=== PATIENT | male | born 1950 | race Caucasian/White ===

== ENCOUNTER 2018-06-28 11:45 | Inpatient (IN) | payer OTHER ==
[~2018-06-28] VITALS: Ht 177.8 cm; Wt 81.2 kg
[2018-06-28] MEDS ORDERED: CLONIDINE HCL 0.2 MG TAB PO ONE (12:15)
[2018-06-28 12:48] LABS: BASOPHILS # (AUTO) 0.1 (0.0-0.1); BASOPHILS % 0.8 % (0.0-1.0); EOSINOPHILS # (AUTO) 0.3 (0.0-0.4); HEMATOCRIT 41.7 % (38.2-49.6); HEMOGLOBIN 14.1 g/dL (14.0-18.0); LYMPHOCYTES # (AUTO) 1.7 (1.0-3.2); LYMPHOCYTES % 13.3 % (18.0-39.1); MEAN CORPUSCULAR HGB CONC 33.8 g/dL (31-35); MEAN CORPUSCULAR VOLUME 91.6 fL (81-99); MONOCYTES % 7.7 % (4.4-11.3); NEUTROPHILS # (AUTO) 9.8 (2.1-6.9); PLATELET COUNT 347 x10e3/uL (140-360); RED BLOOD COUNT 4.55 x10e6/uL (4.3-5.7); RED CELL DISTRIBUTION WIDTH 13.1 % (11.7-14.4)
[2018-06-28 12:52] LABS: INR 0.9
[2018-06-28 12:53] LABS: PARTIAL THROMBOPLASTIN TIME 26.3 seconds (23.8-35.5)
[2018-06-28 13:01] LABS: ALANINE AMINOTRANSFERASE 21 IU/L (0-55); ALBUMIN 3.4 g/dL (3.5-5.0); ALBUMIN/GLOBULIN RATIO 0.8 (0.8-2.0); ALKALINE PHOSPHATASE 66 IU/L (40-150); ANION GAP 13.1 mmol/L (8-16); BLOOD UREA NITROGEN 17 mg/dL (7-26); BUN/CREATININE RATIO 22 (6-25); CALCIUM 9.5 mg/dL (8.4-10.2); CARBON DIOXIDE 22 mmol/L (22-29); CHLORIDE 107 mmol/L (98-107); CREATINE KINASE 209 IU/L (30-200); CREATININE, SERUM 0.79 mg/dL (0.72-1.25); EST GLOMERULAR FILTRATION RATE > 60 ML/MIN (60-); GLUCOSE 104 mg/dL (74-118); MAGNESIUM 2.1 MG/DL (1.3-2.1); POTASSIUM 4.1 mmol/L (3.5-5.1); SODIUM 138 mmol/L (136-145)
[2018-06-28] MEDS ORDERED: ONDANSETRON HCL INJ 2 MG/ML VIAL IV STA (13:23)
[2018-06-28] MEDS ORDERED: MORPHINE SULFATE 5 MG/ML VIAL IV ONE (13:30)
[2018-06-28] MEDS ORDERED: PIPER-TAZ 3.375 GM 50 ML IV ONE (13:30)
[2018-06-28] MEDS ORDERED: VANCOMYCIN 1GM/NS 250 ML 250 ML IV ONE (13:30)
[2018-06-28] MEDS ORDERED: MORPHINE SULFATE INJ 4 MG/ML INJ IV NR (13:45)
[2018-06-28] MEDS: SODIUM CHLORIDE 0.9% 1000ML 1,000 ML IV SCH (14:18)
--- NOTE | 2018-06-28 15:21 | Diagnostic Imaging Report ---
PROCEDURE: X-RAY CHEST, TWO VIEWS COMPARISON: None. INDICATIONS: INFECTED RIGHT GREAT TOE FINDINGS: LUNGS: Chronic appearing interstitial changes of the lungs. PLEURA: No effusions or pneumothorax. HEART & MEDIASTINUM: The heart is within normal size-limits. BONES & SOFT TISSUES: Degenerative changes of the spine with wedge deformity of one of the lower thoracic spine vertebral bodies. CONCLUSION: Chronic appearing changes in the lungs.. Rogelio Whitt D.O. Dictated by: Rogelio Whitt D.O. on 06/28/2018 at 15:32 Electronically approved by: Rogelio Whitt D.O. on 06/28/2018 at 15:32
--- NOTE | 2018-06-28 15:41 | Diagnostic Imaging Report ---
PROCEDURE:X-RAY RIGHT FOOT, COMPLETE COMPARISON:None. INDICATIONS:INFECTED RIGHT GREAT TOE FINDINGS: There are no fractures, dislocations, lytic or blastic lesions. No bony erosions are obvious signs of osteomyelitis. The bones are well-mineralized. There is soft tissue swelling. CONCLUSION: No obvious osteomyelitis. Rogelio Whitt D.O. Dictated by: Rogelio Whitt D.O. on 06/28/2018 at 15:52 Electronically approved by: Rogelio Whitt D.O. on 06/28/2018 at 15:52
[2018-06-28 15:45] LABS: BILIRUBIN,URINE NEGATIVE (NEGATIVE); CLARITY,URINE CLEAR (CLEAR); COLOR,URINE YELLOW (YELLOW); KETONES,URINE NEGATIVE (NEGATIVE); LEUKOCYTE ESTERASE ,URINE NEGATIVE (NEGATIVE); NITRITE,URINE NEGATIVE (NEGATIVE); PROTEIN,URINE DIPSTICK NEGATIVE (NEGATIVE); URINE UROBILINOGEN 0.2 mg/dL (0.2 - 1)
[2018-06-28 16:01] LABS: BACTERIA,URINE FEW /HPF; EPITHELIAL CELLS,URINE FEW /LPF; RBC,URINE 0-5 /HPF (0-5); WBC,URINE (MAN) 0-5 /HPF (0-5)
[2018-06-28] MEDS ORDERED: SODIUM CHLORIDE 0.9% 1000ML 1,000 ML IV SCH (16:14)
--- OUTSIDE RECORDS SUMMARY | 2018-06-28 16:27 | XMS REPORT ---
Author Author [facility] Address Unknown Phone Unavailable Care Team Providers Care Medical Records Receptionist Name Role Phone Estefany NIETO Unavailable Unavailable Problems This patient has no known problems. Allergies, Adverse Reactions, Alerts This patient has no known allergies or adverse reactions. Medications This patient has no known medications. Results Test Description Test Time Test Comments Text Results Atomic Results Result Comments FOOT RIGHT COMPLETE 2018-06-28 15:52:00 [facility] [address] [place] [address] Patient Name: ROBERT ALFONSO JR MR #: [id number] : 1950 Age/Sex: 68/M Req #: [id number] Adm Physician: Ordered by: AARON BE NP Report #: [id number] Location: ER Room/Bed: Procedure: [id number] DX/FOOT RIGHT COMPLETE Exam Date: 06/28/18 Exam Time: 1250 REPORT STATUS: Signed PROCEDURE: X-RAY RIGHT FOOT, COMPLETE COMPAR KAMALA: None. INDICATIONS: INFECTED RIGHT GREAT TOE FINDINGS: There are no fractures, dislocations, lytic or blastic lesions. No bony erosions are obvious signs of osteomyelitis. The bones are well-mineralized. There is soft tissue swelling. CONCLUSION: No obvious osteomyelitis. Jomar Whitt D.O. Dictated by: Jomar Whitt D.O. on 06/28/2018 at 15:52 Electronically approved by: Jomar Whitt D.O. on 06/28/2018 at 15:52 Dictated By: JOMAR WHITT DO 1552 Transcribed By: RIGO on 06/28/18 1552 COPY TO: AARON BE NP CHEST 2 VIEWS 2018-06-28 15:32:00 [place] [address] Patient Name: ROBERT ALFONSO JR MR #: [id number] : 1950 Age/Sex: 68/M Req #: [id number] Adm Physician: Ordered by: AARON BE NP Report #: [id number] Location: ER Room/Bed: Procedure: [id number] DX/CHEST 2 VIEWS Exam Date: 06/28/18 Exam Time: 1250 REPORT STATUS: Signed PROCEDURE: X-RAY CHEST, TWO VIEWS COMPARISON: None. IN DICATIONS: INFECTED RIGHT GREAT TOE FINDINGS: LUNGS: Chronic appearing interstitial changes of the lungs. PLEURA: No effusions or pneumothorax. HEART MEDIASTINUM: The heart is within normal size- limits. BONES SOFT TISSUES: Degenerative changes of the spine with wedge deformity of one of the lower thoracic spine vertebral bodies. CONCLUSION: Chronic appearing changes in the lungs.. Jomar Whitt D.O. Dictated by: Jomar Whitt D.O. on 06/28/2018 at 15:32 Electronically approved by: Jomar Whitt D.O. on 06/28/2018 at 15:32 Dictated By: JOMAR WHITT DO 1532 Transcribed By: RIGO on 06/28/18 1532 COPY TO: AARON BE NP
[2018-06-28] MEDS: PIPER-TAZ 3.375 GM 50 ML IV SCH ×2 (17:09→23:40)
--- NOTE | 2018-06-28 19:22 | Consultation ---
DATE OF CONSULTATION: June 28, 2018 REASON FOR CONSULTATION: Gangrenous changes to the right great toe with pregangrenous changes noted to the 5th digit right foot. HISTORY OF PRESENT ILLNESS: This is a pleasant 68-year-old white male, who was seen accompanied by granddaughter, seen in the emergency room. He relates that the infection to the right great toe started 3 weeks ago with a bullae formation, popped the bullae, presented to the urgent care approximately a week ago, was given oral clindamycin and not getting better. According to the patient, the toe turned black from one day to another. He is denying any history of fever, chills, nausea or vomiting. Has not been checked by a physician more than 2 years ago. Does not know if he is a diabetic or not. PAST MEDICAL HISTORY: According to him, unremarkable and noncontributory. CURRENT MEDICATIONS: Vitamins and clindamycin. ALLERGIES: PATIENT DENIES. SOCIAL HISTORY: Smokes a pack a day for 20+ years. Drinks socially. Denies any recreational drug use. Retired. FAMILY HISTORY: Noncontributory. CURRENT MEDICATIONS: Not listed in the chart including IV vancomycin. REVIEW OF SYSTEMS CARDIAC: Denies any palpitations or arrhythmias. RESPIRATORY: Denies any shortness of breath, productive cough. GASTROINTESTINAL: Denies any diarrhea, constipation. GENITOURINARY: Denies any hematuria or problems voiding. VITALS: Afebrile. Pulse rate 79, respirations 20, blood pressure 172/99, O2 saturation 99%. LABS: Noted, has a white blood cell count of 12.9, hemoglobin 14.1, hematocrit 41.7 with platelet count of 347,000. PODIATRIC PHYSICAL EXAMINATION: Reveals the following. VASCULAR: Pedal pulses are palpable, diminished to both the DP and PT. NEUROLOGICAL: Reveals some loss of protective sensation when utilizing Willows-Cici 5.07 monofilament wire. MUSCULOSKELETAL: Reveals muscle mass to be asymmetrical. Swelling noted to right lower extremity compared to the left. Muscle strength is 3/5 to 4/5 to all muscle groups. DERMATOLOGICAL: Reveals cyanosis of 5th digit right foot. Some discoloration of digits 2 through 4 with gangrenous changes noted to the distal aspect of the right great toe. X-RAYS: Report was reviewed revealing no gas in the tissue. ASSESSMENT: Gangrene, peripheral arterial disease with cyanosis. PLAN: Will start diluted wet-to-dry Betadine dressing. Will let the foot demarcate. Dr. Marroquin will be consulted for vascular evaluation. Noninvasive arterial Doppler studies will be ordered. Will continue IV vancomycin. Patient understands amputation will need to be done, level to be determined after foot demarcation and vascular evaluation. Job#: [id number] CQ
[2018-06-28 20:00] VITALS: BP 176/97
[2018-06-28 20:25] VITALS: BP 176/97
[2018-06-28 20:40] VITALS: BP 176/97
[2018-06-28] MEDS ORDERED: VANCOMYCIN 1GM/NS 250 ML 250 ML IV SCH (21:00)
[2018-06-28] MEDS: METOPROLOL SUCCINATE 25 MG TAB XL PO SCH (21:15)
[2018-06-28] MEDS: ATORVASTATIN 20 MG TAB PO SCH (21:25)
[2018-06-28] MEDS: HYDROMORPHONE 2MG/ML 2 MG/ML ML IV PRN (22:12)
[2018-06-29] VITALS (7 sets, daily range): BP systolic 144–200; BP diastolic 70–104
[2018-06-29] MEDS: VANCOMYCIN 1GM/NS 250 ML 250 ML IV SCH ×2 (02:00→14:21)
[2018-06-29] MEDS: HYDROMORPHONE 2MG/ML 2 MG/ML ML IV PRN ×3 (04:00→18:03)
[2018-06-29] MEDS: SODIUM CHLORIDE 0.9% 1000ML 1,000 ML IV SCH (05:45)
[2018-06-29] MEDS: PIPER-TAZ 3.375 GM 50 ML IV SCH ×3 (05:45→18:10)
[2018-06-29 06:04] LABS: BASOPHILS # (AUTO) 0.1 (0.0-0.1); BASOPHILS % 0.9 % (0.0-1.0); EOSINOPHILS # (AUTO) 0.4 (0.0-0.4); HEMATOCRIT 38.8 % (38.2-49.6); HEMOGLOBIN 12.9 g/dL (14.0-18.0); LYMPHOCYTES # (AUTO) 1.7 (1.0-3.2); MEAN CORPUSCULAR HEMOGLOBIN 30.5 pg (28-32); MEAN CORPUSCULAR HGB CONC 33.2 g/dL (31-35); MEAN CORPUSCULAR VOLUME 91.7 fL (81-99); MONOCYTES % 9.2 % (4.4-11.3); NEUTROPHILS # (AUTO) 7.4 (2.1-6.9); NEUTROPHILS % 69.5 % (38.7-80.0); PLATELET COUNT 360 x10e3/uL (140-360); RED BLOOD COUNT 4.23 x10e6/uL (4.3-5.7); RED CELL DISTRIBUTION WIDTH 13.3 % (11.7-14.4)
[2018-06-29 06:28] LABS: ANION GAP 14.1 mmol/L (8-16); BLOOD UREA NITROGEN 14 mg/dL (7-26); BUN/CREATININE RATIO 18 (6-25); CALCIUM 9.1 mg/dL (8.4-10.2); CARBON DIOXIDE 21 mmol/L (22-29); CHLORIDE 108 mmol/L (98-107); CREATININE, SERUM 0.78 mg/dL (0.72-1.25); EST GLOMERULAR FILTRATION RATE > 60 ML/MIN (60-); GLUCOSE 96 mg/dL (74-118); POTASSIUM 4.1 mmol/L (3.5-5.1); SODIUM 139 mmol/L (136-145)
[2018-06-29 07:06] LABS: THYROID STIMULATING HORMONE 1.418 uIU/mL (0.350-4.940)
--- NOTE | 2018-06-29 07:43 | Progress Note ---
DATE: June 29, 2018 SUBJECTIVE: Patient seen at bedside, doing better. Denies any history of fever, chills, nausea, or vomiting. OBJECTIVE: VITAL SIGNS: Afebrile. Pulse rate 97, respiration 20, blood pressure 200/104, O2 saturation 97%. EXTREMITIES: Pedal pulse is diminished. Decreased cellulitis. Cyanosis noted to the fifth digit, right foot. Necrotic distal aspect of the right great toe noted with still some dorsal cellulitis and edema, right foot when compared to the left. LABS: Noted. White blood cell count dropping to 10.5, hemoglobin 12.9 with a platelet count of 360,000. ASSESSMENT: Peripheral arterial disease. Gangrene, right great toe with cyanosis, fifth digit with cellulitis to the dorsal aspect and edema, right foot. PLAN: Will continue IV Zosyn and vanco. Continue local wound care. Patient will be undergoing angiogram with possible angioplasty depending on findings. Will continue to treat conservatively for now, let the foot demarcate before any definitive procedure is performed. Job#: [id number]
--- NOTE | 2018-06-29 08:26 | Consultation ---
DATE OF CONSULTATION: June 28, 2018 CARDIOLOGY CONSULTATION REFERRING PHYSICIAN: Dr. Yosi Min REASON FOR CONSULTATION: Foot wound/gangrene. HISTORY OF PRESENT ILLNESS: Mr. Perla is a pleasant 68-year-old man with history of hypertension, smoking, who presents via the emergency department with complaints of worsening discoloration of the right forefoot, particularly the right first toe with black discoloration and erythema of the forefoot and other digits to the right lower extremity over a course of 3 weeks, during which he initially thinks he might have sustained blunt trauma to the first toe, followed by blister formation and skin breakdown, followed by erythema, swelling, and then gradually black discoloration of right first toe. [facility] where antibiotics were prescribed per his account, however, he failed to notice significant improvement, otherwise noticing worsening swelling, reason why he proceeded to the hospital. He denies any prior chest discomfort or shortness of breath. He denies any prior knowledge of cardiovascular disease. He has been initiated on IV antibiotics and he is admitted for further care. Podiatry has been consulted and evaluated patient. TWELVE-SYSTEM REVIEW: Negative except for as noted above. ALLERGIES: PER EMR. PAST MEDICAL HISTORY: Reports no past medical history, however, elevated blood pressure is concerning and present in the past, hypertension. SOCIAL HISTORY: Active smoker. No alcohol or drugs. FAMILY HISTORY: Noncontributory. PHYSICAL EXAMINATION: VITAL SIGNS: Temperature 98.2, heart rate 79, respiratory rate 21, blood pressure 172/94, O2 sat 97% at room air. GENERAL: In no acute distress, alert, active. NECK: No JVD. CHEST: Clear to auscultation. CARDIOVASCULAR: Regular rate and rhythm. Normal S1 and S2. Systolic ejection murmur. No S3, no S4. ABDOMEN: Soft. EXTREMITIES: Right foot erythema in the distal third, gangrene of mid to distal first right toe, and cyanotic changes of other toes of right lower extremity. Faint right dorsalis pedis pulse. Warm extremity. Intact skin to left foot. STUDIES: Reviewed. Sodium 138, potassium 4.1, chloride 107, bicarbonate 22, BUN 17, creatinine 0.74, glucose 104. White blood cells 12.9, hemoglobin 14.1, platelets 347,000. INR 0.9, calcium 9.5, magnesium 2.1. Total protein 7.7, albumin 3.4, total bilirubin 0.3, AST 19, ALT 21, alk phos 209. Right foot x-ray with no gross evidence of osteomyelitis. Chest x-ray with chronic interstitial lung infiltrates and wedge sign of vertebrae concerning for compression fractures. Normal cardiomediastinal silhouette. ASSESSMENT: 1. Right foot cellulitis with failure of outpatient treatment. 2. Critical limb ischemia with right first toe dry gangrene and early cyanotic changes of other toes in the setting of faint right dorsalis pedis pulse and presence of active infection. 3. Active smoker. 4. Chest x-ray changes concerning for lung disease in the setting of smoking raises question of chronic obstructive pulmonary disease. 5. Hypertension. RECOMMENDATIONS: 1. Initiate 81 mg daily aspirin, atorvastatin at moderate potency, and beta gui. 2. Echocardiogram ordered for perioperative evaluation. Anticipate patient will need some degree of amputation. 3. Bilateral lower extremity arterial Doppler ordered to further screen vascular arterial system to lower extremity. Will wait further decision on invasive evaluation depending on clinical progression and initial study results. Thank you for the opportunity to participate in the care of Mr. Perla. Will be following him closely with you. He has overall guarded foot prognosis. Job#: [id number]
[2018-06-29] MEDS: ASPIRIN 81 MG CHEW TAB PO SCH (09:12)
[2018-06-29] MEDS: METOPROLOL SUCCINATE 25 MG TAB XL PO SCH (09:12)
[2018-06-29] MEDS: NIFEDIPINE CR 30 MG TAB PO SCH (11:04)
[2018-06-29] MEDS: SENNOSIDES 8.6 MG TAB PO SCH ×2 (11:04→18:02)
[2018-06-29] MEDS: DEXTROSE 5%/0.45% SOD CHL 1,000 ML IV SCH (11:04)
--- NOTE | 2018-06-29 13:29 | Progress Note ---
DATE: June 29, 2018 CARDIOLOGY PROGRESS NOTE SUBJECTIVE: No new complaints. OBJECTIVE VITAL SIGNS: Temperature 97.1, heart rate 79, respiratory rate 18, blood pressure 183/83, O2 sat 91% on room air. GENERAL: In no acute distress. Alert. NECK: No JVD. CHEST: Clear to auscultation. CARDIOVASCULAR: Regular rate and rhythm. Normal S1 and S2. ABDOMEN: Soft, nontender. EXTREMITIES: With right toe edema improving, gangrene 1st toe, and cyanotic discoloration of 2nd to 5th toes, more pronounced on the 5th toe. Dopplers ordered and still pending. CARDIOVASCULAR MEDICATIONS: Reviewed. 1. Zosyn and vancomycin antibiotics. 2. Aspirin 81 mg daily. 3. Nifedipine 60 mg daily. 4. Metoprolol succinate 25 mg daily. 5. Nicotine 21 mg p.r.n. 6. Lovenox 40 mg subcutaneous daily. 7. Atorvastatin 20 mg nightly. STUDIES: Reviewed. White blood cells 10.5, hemoglobin 12.9, platelets 360. Sodium 139, potassium 4.1, chloride 108, bicarbonate 21, BUN 14, creatinine 0.78, glucose 91. Triglycerides 96, total cholesterol 166, LDL 114, HDL 33. Blood cultures ordered and pending. ASSESSMENT 1. Left foot cellulitis with gangrenous changes of the toes. 2. Critical limb ischemia. 3. Active smoker. 4. History of hypertension. 5. Chest x-ray changes concerning for lung disease, chronic. RECOMMENDATIONS 1. Await arterial Doppler. 2. Await echocardiogram. 3. Improving with antibiotics, continue current treatment strategy. Edema going down today. 4. Continue aspirin, statin and beta gui. Job#: [id number] EV
--- NOTE | 2018-06-29 13:30 | History and Physical ---
PRIMARY CARE PROVIDER: Dr. Santiago Judd CONSULTATIONS: Derrell Vicente and Dr. Jaron Mcclellan. CHIEF COMPLAINT: Right foot gangrene of greater toe and right foot cellulitis. HISTORY: Patient is a 68-year-old male who apparently injured his right foot with right greater toe that became bluish, but his entire right toe is with some bluish discoloration with right greater toe necrosis and tissue. The patient was seen by Dr. Derrell Vicente. The patient has significant peripheral vascular disease. Right greater toe cyanosis, gangrene and 5th digit with cellulitis to the dorsal aspect and edema of the right foot with cellulitis as well. He also has some discoloration of his other toe. The patient does have severe vascular disease. The patient is seen by Dr. Vaughan. The patient will have vascular workup and possible future angiogram. The patient is otherwise stable at this time. PAST MEDICAL HISTORY: Peripheral vascular disease. The patient is a smoker. PAST SURGICAL HISTORY: Brain aneurysm repair back in the . SOCIAL HISTORY: Patient is a smoker. He denies alcohol use. No recreational drugs. ALLERGIES: NO KNOWN ALLERGIES. HOME MEDICATIONS: None. REVIEW OF SYSTEMS: Right foot pain and infection with ischemic greater toe and other toes as well. PHYSICAL EXAMINATION VITAL SIGNS: Temperature is 97, blood pressure 189/83, pulse rate 79, respirations 18. GENERAL: The patient is not in acute distress. He is awake. HEENT: Normocephalic, atraumatic and anicteric. NECK: Supple grossly. PULMONARY: Diminished breath sounds. CARDIOVASCULAR: Regular rate and rhythm. ABDOMEN: Soft, nontender and no distention. EXTREMITIES: No gross cyanosis or edema of the left lower extremity. Right foot ischemia and right greater toe gangrene with tissue. There is right foot with cellulitis, swelling and redness. There is other toes including the 2nd, 3rd, 4th, and 5th digit cyanosis. 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 LABORATORY: Sodium is 139, potassium 4.1, chloride 108, bicarb 21, BUN is 14, creatinine 0.7, glucose is 96. WBC is 10.5, hemoglobin 12.9, hematocrit 38.8, and platelets is 360,000. IMPRESSION 1. Right foot ischemia with right greater toe necrotic tissue, gangrene and right foot cellulitis along with other toes ischemia. 2. Hypertensive urgency. PLAN: Vascular workup. IV antibiotics. Consultation with Dr. Derrell Vicente and Dr. Vaughan already done. Will place the patient on Lovenox 40 mg subcutaneous for now. MRA of the brain to make sure that there is no other risk factor for anticoagulant therapy since the patient may need anticoagulant therapy for his peripheral vascular disease. Job#: [id number] [place]
--- NOTE | 2018-06-29 15:05 | Discharge Summary ---
NO DICTATION, LENGTH 0:1 Job#: [id number] RI
[2018-06-29] MEDS ORDERED: ENOXAPARIN SOD INJ 40 MG/0.4 ML SYR SC SCH (17:00)
[2018-06-29] MEDS ORDERED: IOPAMIDOL 370 MG/ML 200 ML INFUS..BTL INJ ONE (19:41)
[2018-06-29] MEDS ORDERED: SODIUM CHLORIDE 0.9% 50ML 50 ML ONE (19:41)
[2018-06-29] MEDS: HYDROCODONE/APAP 10MG-325MG TAB PO PRN (21:30)
--- NOTE | 2018-06-29 22:00 | Diagnostic Imaging Report ---
CTA BRAIN HISTORY: History of brain aneurysm COMPARISON: None. TECHNIQUE: Intracranial CT angiogram was performed. Coronal, sagittal , and 3-D reformations were created. A noncontrast head CT was also obtained. One or more of the following dose reduction techniques were used: Automated exposure control, adjustment of the mA and/or kV according to patient size, and/or utilization of iterative reconstruction technique. 100 mL of Isovue-370 were administered. DISCUSSION: Head CT: Scalp/Skull: Right pterional craniotomy changes are present. Brain sulci: Overall mildly prominent. Ventricles: Compensatory dilatation. Extra-axial spaces: No masses or fluid collections. 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 Mild periventricular white matter hypodensities are likely chronic microvascular ischemic changes. Otherwise, no masses, hemorrhage, or large vascular territory acute infarct. Dural sinuses: No abnormal densities. Sellar/Suprasellar region: Suprasellar aneurysm clip is present; associated streak artifacts obscure some details. Skull base: Intact. Incidental findings: There is minimal mucosal thickening in the left sphenoid sinus Intracranial CTA: Carotid arteries: Aneurysm clip in the area of the anterior communicating artery; there is no gross evidence for residual aneurysm. There is minimal left carotid siphon calcification without significant stenosis The intracranial internal carotid arteries are otherwise patent and without abnormality. No abnormalities in the A1 or M1 segments. Vertebrobasilar Circulation: Vertebral arteries: Patent, no abnormalities. Basilar artery: Patent, no abnormalities. Posterior cerebral arteries: Patent, no abnormalities. Normal Variants: Pcoms: Not visualized. Vertebral arteries: Left dominant. IMPRESSION: Head CT: 1. No acute intracranial abnormalities. 2. Postsurgical changes of aneurysm clipping. 3. 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 4. Mild supratentorial chronic microvascular ischemic change. Mild generalized cerebral volume loss. Intracranial CTA: 1. Aneurysm clip in the area of the anterior communicating artery. Associated streak artifacts obscure some details. No gross evidence for residual aneurysm. 2. Minimal left carotid siphon calcification without significant stenosis. 3. No other intracranial CTA abnormalities Signed by: Dr. Tapan Kramer M.D. on 06/29/2018 9:57 PM
[2018-06-30] VITALS (15 sets, daily range): BP systolic 142–170; BP diastolic 73–96
[2018-06-30] MEDS: VANCOMYCIN 1GM/NS 250 ML 250 ML IV SCH ×2 (02:30→18:14)
[2018-06-30] MEDS: HYDROMORPHONE 2MG/ML 2 MG/ML ML IV PRN ×3 (03:52→21:10)
[2018-06-30] MEDS: DEXTROSE 5%/0.45% SOD CHL 1,000 ML IV SCH (05:30)
[2018-06-30] MEDS: PIPER-TAZ 3.375 GM 50 ML IV SCH ×5 (06:00→23:40)
[2018-06-30] MEDS: ASPIRIN 81 MG CHEW TAB PO SCH (08:41)
[2018-06-30] MEDS: NIFEDIPINE CR 30 MG TAB PO SCH (08:42)
[2018-06-30] MEDS: SENNOSIDES 8.6 MG TAB PO SCH ×2 (08:42→17:00)
[2018-06-30] MEDS: METOPROLOL SUCCINATE 25 MG TAB XL PO SCH (08:42)
[2018-06-30] MEDS: HYDROCODONE/APAP 10MG-325MG TAB PO PRN (10:09)
[2018-06-30] MEDS ORDERED: MIDAZOLAM HCL 2 MG/2 ML VIAL ONE ×2 (14:34→16:12)
[2018-06-30] MEDS ORDERED: HEPARIN SOD (PORCINE) 1000 UNIT/ML 30ML ONE (14:34)
[2018-06-30] MEDS ORDERED: NITROGLYCERIN/D5W 200 MCG/ML 250 ML ONE (14:35)
[2018-06-30] MEDS ORDERED: HEPARIN SOD/SOD CHLORIDE 2,000 ML ONE (14:35)
[2018-06-30] MEDS ORDERED: SODIUM CHLORIDE 0.9% 1000ML 1,000 ML ONE (14:35)
[2018-06-30] MEDS ORDERED: IOPAMIDOL 300MG/ML 100 ML INFUS..BTL IV ONE ×2 (14:35→15:46)
[2018-06-30] MEDS ORDERED: FENTANYL CITRATE/PF 100MCG/2 ML INJ ONE (14:35)
[2018-06-30] MEDS ORDERED: LIDOCAINE HCL 2% LOCAL INJ 5 ML SDV VIAL INJ ONE (14:37)
--- NOTE | 2018-06-30 14:51 | Progress Note ---
DATE: June 30, 2018 CARDIOLOGY PROGRESS NOTE SUBJECTIVE: Gangrenous changes to first toe and early gangrene to 5th toe. Edema is somewhat better. Discussed Doppler findings, concerned about progression of disease. Activated lab for urgent peripheral angiography and attempted revascularization due to concern for a component of acute limb ischemia or subacute limb ischemia and progressive disease. OBJECTIVE VITAL SIGNS: Temperature 97.1, heart rate 77, respiratory rate 20, blood pressure 145/83, O2 sat 95%. BMI is 26.9. GENERAL: In no acute distress. Alert. NECK: No JVD. CHEST: Clear to auscultation. CARDIOVASCULAR: Regular rate and rhythm. Normal S1 and S2. No S3 or S4. ABDOMEN: Soft. EXTREMITIES: Trace right toe edema, gangrenous changes 1st toe, 5th toe, and discoloration of the 2nd to 4th toes. Decreased dorsalis pedis and posterior tibial pulses. LABORATORY DATA: Studies reviewed. Potassium 4.1, creatinine 0.78, hemoglobin 12.9, white blood cells 10.5, platelets 260. AST 19 and ALT 21. CARDIOVASCULAR MEDICATIONS 1. Aspirin 81 mg. 2. Nifedipine 60 mg daily. 3. Nifedipine 60 mg daily. 4. Atorvastatin 40 mg nightly. 5. Metoprolol succinate 25 mg daily. 6. Nicotine patch 21 mg daily. 7. Vancomycin and Zosyn. ASSESSMENT 1. Foot gangrene, abnormal Dopplers, peripheral arterial disease. Critical limb ischemia with a component of subacute ischemia and progressive disease. 2. Hypertension. 3. Chronic x-ray changes of lung concerning for underlying chronic obstructive pulmonary disease/pulmonary pathology. RECOMMENDATIONS 1. Angiography and possible endovascular revascularization planned for today. 2. Continue current cardiovascular medications and antiplatelets. 3. Further recommendations to follow. Job#: [id number] JARED
--- NOTE | 2018-06-30 15:51 | Progress Note ---
DATE: June 30, 2018 SUBJECTIVE: Patient at bedside. OBJECTIVE EXTREMITIES: Still with cyanosis noted to the 5th digit, right foot. Gangrenous changes overlying the distal aspect of the right great toe with erythema surrounding the first metatarsophalangeal joint. Pedal pulses are diminished to both the DP and PT. Skin temperature is warm and cool to touch. ASSESSMENT: Peripheral arterial disease with gangrene, capsulitis, and cyanosis. PLAN: Patient will be taken for an angiogram and possible angioplasty per Dr. Vaughan today. Continue IV antibiotics and local wound care. Once the procedure is performed, we will let the foot demarcate before a definitive procedure will be done. We will continue Zosyn and vancomycin. Job#: [id number] MACK
[2018-06-30] MEDS ORDERED: CLOPIDOGREL BISULFATE 75 MG TAB ONE (15:54)
[2018-06-30] MEDS ORDERED: ASPIRIN 325 MG TAB ONE (15:54)
[2018-06-30] MEDS ORDERED: ALTEPLASE 50 MG/VIAL (29 MILLION IU) IV ONE (16:16)
[2018-06-30] MEDS ORDERED: ONDANSETRON HCL INJ 2 MG/ML VIAL IV PRN (17:00)
[2018-06-30] MEDS: ENOXAPARIN SOD INJ 40 MG/0.4 ML SYR SC SCH (17:00)
[2018-06-30] MEDS: MORPHINE SULFATE INJ 4 MG/ML INJ IV PRN ×2 (20:24→23:39)
[2018-06-30] MEDS: ATORVASTATIN 20 MG TAB PO SCH (21:09)
[2018-07-01] VITALS (26 sets, daily range): BP systolic 120–171; BP diastolic 57–104
[2018-07-01] MEDS: HYDROCODONE/APAP 10MG-325MG TAB PO PRN (01:35)
--- NOTE | 2018-07-01 01:55 | Consultation ---
DATE OF CONSULTATION: June 30, 2018 REASON FOR CONSULT: Ischemic right lower extremity; requested by Dr. Sada Vaughan. ACCOUNTING SYSTEMS MANAGER: Dr. Yosi Min. HISTORY: I saw and evaluated this patient on June 30, 2018. He is a very nice 68-year-old man with a history of smoking, who presented to the emergency room with discoloration and cyanosis of the right foot. The right first toe was the most prominently affected. He attributed the problems to stubbing his toe several weeks ago, but the problem seems to have been developing for longer than that. He went to a freestanding emergency room and was admitted to [facility]. An angiogram today by Dr. Vaughan reveals an occluded superficial/popliteal artery with distal reconstitution and what appears to be 3-vessel runoff. He is being maintained on Lovenox. The patient denies any history of claudication. He said that he was walking as far as he wanted to several months ago and this included trips of up to a 1 to 2 miles. He denies any history of rest pain. There is no history of previous ischemic extremities. He is a long-time smoker. No history of myocardial infarction. MEDICATIONS AT HOME: None. He only takes vitamins. SOCIAL HISTORY: Positive for smoking. No alcohol or IV drugs. He was by himself. He has a daughter that he does not speak to in [place]. PAST MEDICAL HISTORY: Probably positive for hypertension, but he does not see any physician. FAMILY HISTORY: Negative for early coronary artery disease. MEDICATIONS: See EMR. ALLERGIES: None known. REVIEW OF SYSTEMS: GENERAL: Negative for fatigue and malaise. NEUROLOGIC: Negative for focal weakness in the extremities or dysarthria. HEENT: Negative for decreased vision or decreased hearing. CARDIAC: Negative for chest pain or palpitations. PULMONARY: Negative for shortness of breath or wheezing. GI: No constipation or diarrhea. : Negative for hematuria or dysuria. ENDOCRINE: Negative for polyuria or polydipsia. VASCULAR: Positive as above. SKIN: Negative for rashes or itching. Positive for great toe discoloration on the right. HEMATOLOGIC: Negative for clotting or bleeding. INFECTIOUS: Negative for fevers or sweating. PSYCHIATRIC: Negative for depression or anxiety. PHYSICAL EXAMINATION GENERAL: A well-developed, well-nourished man, lying flat in bed in the ICU at [facility]. VITAL SIGNS: Blood pressure 140/70, pulse 80 and regular, respirations 16 and unlabored. NECK: Supple and nontender. No JVD. CARDIAC: Shows a regular rate and rhythm. There is a normal S1 and S2. There is no S3, S4, rub or murmur. LUNGS: Clear to auscultation and percussion bilaterally. ABDOMEN: Globoid, benign. Good bowel sounds. No hepatosplenomegaly. BACK: No CVA tenderness. No muscular spasms. EXTREMITIES: Right foot and great toe are cyanotic/ischemic. The right lower extremity is warm to the ankle without any ischemia. On the left, the lower extremity is warm throughout. VASCULAR: Carotids, radials, femorals are 2+/2+ bilaterally. On the left, the popliteal, dorsalis pedis and posterior tibialis are 2+/2+. On the right, the popliteal, dorsalis pedis and posterior tibial are not palpable. NEUROLOGIC: Cranial nerves II-XII intact. Sensation is intact to light touch and pinprick both upper extremities and left lower extremity. Right lower extremity has somewhat diminished sensation on the right foot, but otherwise is intact. LYMPHATIC: Negative for cervical, clavicular, femoral adenopathy. LABORATORIES AND IMAGING: Angiogram is reviewed on a phone video. The crime lab analyst is not open for review. Sodium is 139, potassium 4.1, BUN 14, creatinine 0.78, white count 10.5, hemoglobin 12.9, hematocrit 38.8, and platelet count 360,000. INR is 0.90. IMPRESSION: Right lower extremity acceptably well perfused at present. We will discuss options with Dr. Vaughan and the patient's other physicians. Thank you very much for asking me to see this nice man. Job#: [id number] KENY
[2018-07-01] MEDS: VANCOMYCIN 1GM/NS 250 ML 250 ML IV SCH ×2 (02:09→14:30)
[2018-07-01] MEDS: HYDROMORPHONE 2MG/ML 2 MG/ML ML IV PRN ×2 (02:42→20:15)
[2018-07-01] MEDS: MORPHINE SULFATE INJ 4 MG/ML INJ IV PRN ×2 (04:00→23:15)
[2018-07-01 04:54] LABS: BASOPHILS # (AUTO) 0.1 (0.0-0.1); BASOPHILS % 0.8 % (0.0-1.0); EOSINOPHILS # (AUTO) 0.3 (0.0-0.4); EOSINOPHILS % 2.5 % (0.0-6.0); HEMATOCRIT 41.7 % (38.2-49.6); HEMOGLOBIN 14.2 g/dL (14.0-18.0); LYMPHOCYTES # (AUTO) 1.3 (1.0-3.2); LYMPHOCYTES % 11.1 % (18.0-39.1); MEAN CORPUSCULAR HEMOGLOBIN 30.7 pg (28-32); MEAN CORPUSCULAR HGB CONC 34.1 g/dL (31-35); MEAN CORPUSCULAR VOLUME 90.1 fL (81-99); MONOCYTES % 7.9 % (4.4-11.3); NEUTROPHILS # (AUTO) 9.3 (2.1-6.9); NEUTROPHILS % 77.4 % (38.7-80.0); PLATELET COUNT 362 x10e3/uL (140-360); RED BLOOD COUNT 4.63 x10e6/uL (4.3-5.7); RED CELL DISTRIBUTION WIDTH 12.9 % (11.7-14.4)
[2018-07-01 05:19] LABS: ANION GAP 13.3 mmol/L (8-16); BLOOD UREA NITROGEN 12 mg/dL (7-26); BUN/CREATININE RATIO 17 (6-25); CARBON DIOXIDE 19 mmol/L (22-29); CHLORIDE 107 mmol/L (98-107); CREATININE, SERUM 0.72 mg/dL (0.72-1.25); EST GLOMERULAR FILTRATION RATE > 60 ML/MIN (60-); GLUCOSE 95 mg/dL (74-118); POTASSIUM 3.3 mmol/L (3.5-5.1); SODIUM 136 mmol/L (136-145)
[2018-07-01] MEDS: PIPER-TAZ 3.375 GM 50 ML IV SCH ×4 (06:00→23:57)
[2018-07-01] MEDS: ASPIRIN 81 MG CHEW TAB PO SCH (07:58)
[2018-07-01] MEDS: NIFEDIPINE CR 30 MG TAB PO SCH (08:00)
[2018-07-01] MEDS: NICOTINE 21 MG/EA PATCH TOP PRN (08:01)
[2018-07-01] MEDS: SENNOSIDES 8.6 MG TAB PO SCH ×2 (08:01→16:45)
[2018-07-01] MEDS: ENOXAPARIN SOD INJ 40 MG/0.4 ML SYR SC SCH (08:01)
[2018-07-01] MEDS: METOPROLOL SUCCINATE 25 MG TAB XL PO SCH (08:01)
[2018-07-01] MEDS ORDERED: HEPARIN SOD (PORCINE) 5,000 UNIT/ML VIAL IV ONE (11:00)
[2018-07-01] MEDS ORDERED: HEPARIN SOD (PORCINE) 5,000 UNIT/ML VIAL IV NR (11:15)
[2018-07-01] MEDS: HEPARIN 25,000 UNIT/D5W 250ML 250 ML IV SCH (11:23)
--- NOTE | 2018-07-01 13:26 | Progress Note ---
DATE: July 01, 2018 SUBJECTIVE: Patient seen in ICU. Denying any history of fever, chills, nausea, or vomiting. OBJECTIVE VITAL SIGNS: Afebrile, pulse rate 78, respirations 22, blood pressure 162/86, O2 saturation 98%. EXTREMITIES: There is decreased swelling and cellulitis to the right lower extremity. Fifth digit right foot is looking a little bit better. Better skin temperature. Necrosis to the left great toe is stable. Has erythema surrounding the 1st MPJ. LABS: Noted. Has a white blood cell count of 11.9, hemoglobin 14.2. ASSESSMENT: Peripheral arterial disease with a clot to the superficial femoral artery. PLAN: Patient was put on heparin. We will continue to let the foot demarcate. Continue local wound care. Continue offloading. Job#: [id number] ABHINAV
--- NOTE | 2018-07-01 14:09 | Operative Report ---
DATE OF PROCEDURE: June 28, 2018 PERIPHERAL ANGIOGRAPHY AND INTERVENTION PROCEDURE INDICATIONS: Acute versus subacute limb ischemia with gangrenous and cyanotic changes of toe; however, otherwise viable lower extremity. PROCEDURES PERFORMED 1. Left common femoral access and at the end of procedure manual pressure hemostasis. 2. Abdominal aortogram. 3. Selective lower extremity angiography, unilateral to right lower extremity. 4. Third-order catheter placement from left common femoral artery to right common femoral artery for selective angiography. 5. Additional third-order catheter placement from left common femoral artery to right popliteal artery for additional digital subtraction angiography of the right [id number]-[id number] vessels confirming adequate outflow. This was not well visualized on initial angiogram from right femoral side. 6. Primary arterial thrombectomy of the right superficial femoral artery with Pronto catheter. PROCEDURE COMPLICATIONS: None. ESTIMATED BLOOD LOSS: Less than 100 mL. PROCEDURE SUMMARY: After consent was obtained, patient was prepped and draped in a sterile fashion. The left common femoral artery was accessed with micropuncture after local lidocaine administration and a 6-Cameroonian sheath was placed. An Omni Flush catheter was advanced to the distal descending abdominal aorta and angiography revealed patent renal arteries and luminal irregularities in the infrarenal abdominal aortal and iliac vessels bilaterally. A 6-Cameroonian up and over sheath was then advanced to the right common femoral artery position and angiography selectively to the right lower extremity was performed confirming occluded right SFA in the proximal to mid segment and distal vessels now well visualized. After advancement of Seeker catheter across the area of stenosis and positioned into the distal right SFA, additional angiography with digital subtraction confirmed patent right distal SFA, right popliteal artery, and three-vessel runoff to the right foot. A wire exchange was then performed to Runthrough wire and after initial attempt to position, distal filter wire was placed with difficulty crossing over Seeker catheter. A Runthrough wire was positioned and a Pronto catheter was then used to perform various passes retrieving thrombus from the area of occlusion, although some re-establishment of small channel luminal flow residual significant thrombus burden persisted with residual over 90% area of stenosis in the proximal to mid right SFA. Patient described prior history of brain aneurysm status post neurosurgery and therefore deemed not an adequate candidate for catheter based tPA; therefore, at this point sheath was exchanged for a 7-Cameroonian short sheath to the left common femoral side and after ACT less than 170, pressure hemostasis applied. CV surgery consultation initiated for prompt revascularization via surgical approach. Patient transferred to ICU for further care. CONCLUSION: Right SFA primary thrombectomy with suboptimal results given high burden thrombus RECOMMENDATIONS: CV surgery consultation for surgical approach towards this subacute limb ischemia case. Job#: [id number] SIENA
--- NOTE | 2018-07-01 16:54 | Progress Note ---
DATE: July 01, 2018 CARDIOLOGY PROGRESS NOTE SUBJECTIVE: No new complaints. OBJECTIVE VITAL SIGNS: Temperature 98.4, heart rate 79, respiratory rate 22, blood pressure 159/87, O2 sat 98% on room air on IV heparin. GENERAL: In no acute distress. Alert. NECK: No JVD. CHEST: Clear to auscultation. CARDIOVASCULAR: Regular rate and rhythm. Normal S1 and S2. ABDOMEN: Soft. EXTREMITIES: Edema resolved. Has Doppler positive right dorsalis pedis and posterior tibial pulses, first right toe tip with gangrene and other toes with dusky appearance more pronounced to the 5th toe, overall stable in appearance. CARDIOVASCULAR MEDICATIONS: Reviewed. 1. Zosyn antibiotics. 2. IV heparin. 3. Lovenox discontinued. 4. Nicotine patch. 5. Nifedipine 60 mg daily. 6. Metoprolol succinate 25 mg daily. 7. Vancomycin. 8. Atorvastatin 40 mg at bedtime. STUDIES: Reviewed. White blood cells 11.9, hemoglobin 14.2, platelets 362. Sodium 136, potassium 3.3, chloride 107, bicarbonate 19, BUN 12, creatinine 0.72, glucose 95, calcium 9. ALT 114, HDL 33, triglycerides 96, total cholesterol 166, TSH 1.4. Blood cultures negative x72 hours. ASSESSMENT 1. Subacute limb ischemia with thrombosis proximal to mid right superficial femoral artery and distal reconstitution via collateral and profunda femoris, undergoing vascular surgery evaluation. 2. Toe gangrene, right lower extremity. 3. Chronic lung disease changes on x-ray concerning in the setting of smoking for possible chronic obstructive pulmonary disease. 4. Hypertension. RECOMMENDATIONS: Continue IV heparin and aspirin, up titrate statin therapy. Adjust antihypertensives, antibiotics and podiatry care. We will need some degree of limited amputation at a later date. Appreciate vascular surgery expertise considering options for revascularization. Patient reports history of prior neurosurgery for intracranial aneurysm and is not a candidate for catheter based lytic therapy. Job#: [id number] MARJ
[2018-07-01] MEDS: ATORVASTATIN 40 MG TAB PO SCH (20:59)
[2018-07-02] VITALS (24 sets, daily range): BP systolic 142–179; BP diastolic 83–107
[2018-07-02] MEDS: VANCOMYCIN 1GM/NS 250 ML 250 ML IV SCH ×2 (01:47→14:30)
[2018-07-02] MEDS: HYDROMORPHONE 2MG/ML 2 MG/ML ML IV PRN ×4 (02:00→18:13)
[2018-07-02] MEDS: HYDROCODONE/APAP 10MG-325MG TAB PO PRN ×3 (03:38→19:56)
[2018-07-02 04:44] LABS: BASOPHILS # (AUTO) 0.1 (0.0-0.1); BASOPHILS % 0.8 % (0.0-1.0); EOSINOPHILS # (AUTO) 0.5 (0.0-0.4); HEMATOCRIT 42.9 % (38.2-49.6); HEMOGLOBIN 14.4 g/dL (14.0-18.0); LYMPHOCYTES # (AUTO) 1.9 (1.0-3.2); MEAN CORPUSCULAR HEMOGLOBIN 30.4 pg (28-32); MEAN CORPUSCULAR HGB CONC 33.6 g/dL (31-35); MEAN CORPUSCULAR VOLUME 90.7 fL (81-99); MONOCYTES # (AUTO) 1.1 (0.2-0.8); MONOCYTES % 8.6 % (4.4-11.3); NEUTROPHILS # (AUTO) 9.1 (2.1-6.9); NEUTROPHILS % 71.2 % (38.7-80.0); PLATELET COUNT 393 x10e3/uL (140-360); RED BLOOD COUNT 4.73 x10e6/uL (4.3-5.7); RED CELL DISTRIBUTION WIDTH 12.8 % (11.7-14.4)
[2018-07-02 04:56] LABS: INR 0.99
[2018-07-02 04:57] LABS: PARTIAL THROMBOPLASTIN TIME 38.4 seconds (23.8-35.5)
[2018-07-02 05:02] LABS: ANION GAP 15.1 mmol/L (8-16); BLOOD UREA NITROGEN 12 mg/dL (7-26); BUN/CREATININE RATIO 15 (6-25); CALCIUM 9.5 mg/dL (8.4-10.2); CARBON DIOXIDE 21 mmol/L (22-29); CHLORIDE 105 mmol/L (98-107); CREATININE, SERUM 0.81 mg/dL (0.72-1.25); EST GLOMERULAR FILTRATION RATE > 60 ML/MIN (60-); GLUCOSE 116 mg/dL (74-118); POTASSIUM 3.1 mmol/L (3.5-5.1); SODIUM 138 mmol/L (136-145)
[2018-07-02] MEDS: PIPER-TAZ 3.375 GM 50 ML IV SCH ×4 (05:33→23:47)
[2018-07-02] MEDS: HEPARIN 25,000 UNIT/D5W 250ML 250 ML IV SCH (06:05)
[2018-07-02] MEDS: ASPIRIN 81 MG CHEW TAB PO SCH (07:59)
[2018-07-02] MEDS: METOPROLOL SUCCINATE 25 MG TAB XL PO SCH (08:00)
[2018-07-02] MEDS: SENNOSIDES 8.6 MG TAB PO SCH ×2 (08:00→15:53)
[2018-07-02] MEDS: NIFEDIPINE CR 30 MG TAB PO SCH (08:00)
[2018-07-02] MEDS: NICOTINE 21 MG/EA PATCH TOP PRN (08:01)
--- NOTE | 2018-07-02 10:32 | Progress Note ---
DATE: July 02, 2018 SUBJECTIVE: Patient at bedside. Doing okay. Denies any history of fever, chills, nausea, or vomiting. OBJECTIVE VITALS: Afebrile, pulse rate 77, respirations 21, blood pressure 161/83, O2 saturation 100%. EXTREMITIES: Pedal pulses are diminished to the right lower extremity. Cyanosis to the 5th digit, right foot getting better. Pedal pulses are barely to nonpalpable to both the DP and PT. LABS: Noted. White blood cell count 12.7, hemoglobin 14.4, hematocrit 42.9 with a platelet count of 393,000. ASSESSMENT: Peripheral artery disease with a thrombosis noted to the superficial femoral artery, right foot with gangrenous changes noted to the right great toe and pregangrenous cyanosis to the forefoot aspect of the right lower extremity. PLAN: Continue ptpqisq-tmt-dl-dry Betadine to the affected area. Continue offloading. Patient will be taken for surgical for possible thrombectomy or bypass surgery of fem-pop per Dr. Nixon. Will continue to follow up after the surgery. Let the foot demarcate before any definitive procedure is performed. Job#: [id number] DREA
--- NOTE | 2018-07-02 14:25 | Progress Note ---
DATE: July 02, 2018 CARDIOLOGY PROGRESS NOTE SUBJECTIVE: No new complaints. Plan for possible vascular surgical intervention later today. OBJECTIVE VITALS: Temperature 97 degrees, heart rate 77, respiratory rate 22, blood pressure 158/89, O2 sat 99%. GENERAL: In no acute distress. Alert. NECK: No JVD. CHEST: Clear to auscultation. CARDIOVASCULAR: Regular rate and rhythm. S1 and S2. No S3 or S4. ABDOMEN: Soft and nontender. EXTREMITIES: No edema. Erythema to right forefoot improving. First toe gangrene with blackish discoloration. Other toes dusky and stable in appearance. CARDIOVASCULAR MEDICATIONS: Reviewed. 1. Aspirin 81 mg daily. 2. Atorvastatin 80 mg at bedtime. 3. Vancomycin and Zosyn. 4. Nicotine patch. 5. Metoprolol succinate 50 mg daily. 6. Nifedipine 60 mg daily. STUDIES: Reviewed. Creatinine 0.8, potassium 3.1. Hemoglobin 14.4 and platelets 393,000. INR 0.9. AST 19, ALT 21. ASSESSMENT 1. Subacute limb ischemia with gangrene of 1st toe and dusky appearance of other toes, right lower extremity. 2. Suspected lung disease in the setting of smoking and abnormal chest x-ray. 3. Hypertension. 4. Dyslipidemia. RECOMMENDATIONS 1. Continue current cardiovascular medications. 2. Anticipate moderate risk for cardiovascular outcomes with vascular surgery. At this point, perioperative beta blockers are by-stand and provided to the patient. Appreciate vascular surgery expertise. 3. Foot care per podiatry's expertise. Job#: [id number] NC
[2018-07-02] MEDS: ATORVASTATIN 40 MG TAB PO SCH (21:11)
[2018-07-03] VITALS (25 sets, daily range): BP systolic 123–176; BP diastolic 79–96
[2018-07-03] MEDS: VANCOMYCIN 1GM/NS 250 ML 250 ML IV SCH ×2 (02:53→14:15)
[2018-07-03] MEDS: HYDROCODONE/APAP 10MG-325MG TAB PO PRN ×3 (03:19→17:50)
[2018-07-03] MEDS: PIPER-TAZ 3.375 GM 50 ML IV SCH ×3 (06:00→17:09)
[2018-07-03] MEDS ORDERED: HEPARIN 25,000U/0.45% NS 250ML 250 ML ONE (07:02)
[2018-07-03] MEDS: HEPARIN 25,000 UNIT/D5W 250ML 250 ML IV SCH (07:56)
[2018-07-03] MEDS: ASPIRIN 81 MG CHEW TAB PO SCH (08:31)
[2018-07-03] MEDS: METOPROLOL SUCCINATE 25 MG TAB XL PO SCH (08:32)
[2018-07-03] MEDS: NIFEDIPINE CR 30 MG TAB PO SCH (08:32)
[2018-07-03] MEDS: SENNOSIDES 8.6 MG TAB PO SCH ×2 (08:32→16:33)
[2018-07-03] MEDS: NICOTINE 21 MG/EA PATCH TOP PRN (08:33)
[2018-07-03 08:51] LABS: BASOPHILS # (AUTO) 0.1 (0.0-0.1); EOSINOPHILS # (AUTO) 0.6 (0.0-0.4); EOSINOPHILS % 5.2 % (0.0-6.0); HEMATOCRIT 38.5 % (38.2-49.6); HEMOGLOBIN 12.9 g/dL (14.0-18.0); LYMPHOCYTES # (AUTO) 1.7 (1.0-3.2); LYMPHOCYTES % 14.7 % (18.0-39.1); MEAN CORPUSCULAR HEMOGLOBIN 30.8 pg (28-32); MEAN CORPUSCULAR HGB CONC 33.5 g/dL (31-35); MEAN CORPUSCULAR VOLUME 91.9 fL (81-99); MONOCYTES # (AUTO) 1.3 (0.2-0.8); MONOCYTES % 11.5 % (4.4-11.3); NEUTROPHILS # (AUTO) 7.8 (2.1-6.9); NEUTROPHILS % 67.3 % (38.7-80.0); PLATELET COUNT 391 x10e3/uL (140-360); RED BLOOD COUNT 4.19 x10e6/uL (4.3-5.7); RED CELL DISTRIBUTION WIDTH 13.1 % (11.7-14.4)
[2018-07-03 09:02] LABS: ANION GAP 14.8 mmol/L (8-16); BLOOD UREA NITROGEN 14 mg/dL (7-26); BUN/CREATININE RATIO 20 (6-25); CALCIUM 9.2 mg/dL (8.4-10.2); CARBON DIOXIDE 22 mmol/L (22-29); CHLORIDE 107 mmol/L (98-107); EST GLOMERULAR FILTRATION RATE > 60 ML/MIN (60-); GLUCOSE 94 mg/dL (74-118); POTASSIUM 3.8 mmol/L (3.5-5.1); SODIUM 140 mmol/L (136-145)
--- NOTE | 2018-07-03 12:07 | Progress Note ---
DATE: July 03, 2018 SUBJECTIVE: Patient at bedside. Having some discomfort to the left lower extremity. Denies any history of fever, chills, nausea, or vomiting. OBJECTIVE: VITAL SIGNS: Afebrile, pulse rate 71, respirations 19, blood pressure 145/65. O2 saturation 99%. EXTREMITIES: Left lower extremity looking somewhat mottled. Decreased circulatory status to both the DP and PT with the DP being worse. Cyanosis noted to the 5th digit, right foot. Erythema surrounding the 1st MPJ with gangrenous changes noted to the left great toe. LABS: Show white blood cell count of 11.5, hemoglobin 12.9, platelet count of 391. ASSESSMENT: 1. Gangrene. 2. Peripheral arterial disease with cyanosis. PLAN: Patient will undergo surgical intervention per Dr. Nixon tomorrow, possible thrombectomy or bypass surgery. We will continue local wound care. Continue offloading. Once the procedure is performed, we will let foot demarcate before definitive procedure is done. Job#: [id number] ABHINAV
[2018-07-03] MEDS: METOPROLOL SUCCINATE 50 MG TAB XL PO SCH (16:33)
[2018-07-03] MEDS ORDERED: METOPROLOL SUCCINATE 25 MG TAB XL PO SCH (17:00)
--- NOTE | 2018-07-03 17:37 | Progress Note ---
DATE: July 03, 2018 CARDIOLOGY PROGRESS NOTE SUBJECTIVE: No new complaints. Awaiting surgery. OBJECTIVE VITAL SIGNS: Temperature 98.5, heart rate 70, blood pressure 155/92, respiratory rate 19, O2 sat 99% on nasal cannula. GENERAL: In no acute distress. Alert. NECK: No JVD. CHEST: Clear to auscultation. CARDIOVASCULAR: Regular rate and rhythm. Normal S1 and S2. No S3 or S4. No murmurs. No rubs. ABDOMEN: Soft and nontender. EXTREMITIES: No edema. Right 1st toe with black gangrene and dusky discoloration of other toes of right lower extremity. Doppler positive pulses dorsalis pedis and posterior tibialis of the right lower extremity. Overall appearance stable. Has intact sensation to 2nd to 4th right toes. CARDIOVASCULAR MEDICATIONS: Reviewed; 1. Aspirin 81 mg daily. 2. Atorvastatin 80 mg at bedtime. 3. Metoprolol succinate 50 mg daily, will be increased to 50 mg twice a day. 4. Nifedipine 60 mg daily. 5. Nicotine patch 1 mg daily. 6. Vancomycin. 7. Zosyn. 8. IV heparin. STUDIES: Reviewed. Creatinine 0.7. Hemoglobin 12.9, platelets 391. INR 0.9. Normal transaminases. ASSESSMENT 1. Peripheral arterial disease with subacute limb ischemia, thrombosis of the right superficial femoral artery, pending surgical revascularization, appreciate cardiovascular surgery input and expertise. 2. Chest x-ray findings concerning for intrinsic chronic lung disease possibly chronic obstructive pulmonary disease in the setting of smoking, pending further workup as outpatient at later date. 3. Hypertension. 4. Dyslipidemia. RECOMMENDATIONS 1. Proceed with vascular surgical intervention as per Dr. Nixon's expertise. 2. Up titrate beta gui. 3. Will need surgical intervention by podiatry after revascularization. 4. Will need further outpatient evaluation at a later date from cardiovascular standpoint. Job#: [id number] SIENA
[2018-07-03] MEDS: HYDROMORPHONE 2MG/ML 2 MG/ML ML IV PRN (19:39)
[2018-07-03] MEDS: ATORVASTATIN 40 MG TAB PO SCH (21:00)
[2018-07-04] VITALS (20 sets, daily range): BP systolic 135–178; BP diastolic 57–101
[2018-07-04] MEDS ORDERED: SODIUM CHLORIDE 0.9% 250ML 250 ML ONE
[2018-07-04] MEDS: PIPER-TAZ 3.375 GM 50 ML IV SCH ×4 (00:01→19:59)
[2018-07-04] MEDS: HYDROCODONE/APAP 10MG-325MG TAB PO PRN (00:17)
[2018-07-04] MEDS: VANCOMYCIN 1GM/NS 250 ML 250 ML IV SCH ×2 (02:45→11:56)
[2018-07-04 04:50] LABS: BASOPHILS # (AUTO) 0.1 (0.0-0.1); EOSINOPHILS # (AUTO) 0.6 (0.0-0.4); EOSINOPHILS % 5.4 % (0.0-6.0); HEMOGLOBIN 13.1 g/dL (14.0-18.0); LYMPHOCYTES # (AUTO) 2.1 (1.0-3.2); LYMPHOCYTES % 20.1 % (18.0-39.1); MEAN CORPUSCULAR HGB CONC 32.8 g/dL (31-35); MEAN CORPUSCULAR VOLUME 91.5 fL (81-99); MONOCYTES % 9.5 % (4.4-11.3); NEUTROPHILS # (AUTO) 6.6 (2.1-6.9); NEUTROPHILS % 63.7 % (38.7-80.0); PLATELET COUNT 375 x10e3/uL (140-360); RED BLOOD COUNT 4.37 x10e6/uL (4.3-5.7); RED CELL DISTRIBUTION WIDTH 12.8 % (11.7-14.4)
[2018-07-04 05:14] LABS: ANION GAP 12.8 mmol/L (8-16); BLOOD UREA NITROGEN 16 mg/dL (7-26); BUN/CREATININE RATIO 21 (6-25); CALCIUM 9.4 mg/dL (8.4-10.2); CARBON DIOXIDE 23 mmol/L (22-29); CHLORIDE 107 mmol/L (98-107); CREATININE, SERUM 0.76 mg/dL (0.72-1.25); EST GLOMERULAR FILTRATION RATE > 60 ML/MIN (60-); GLUCOSE 99 mg/dL (74-118); POTASSIUM 3.8 mmol/L (3.5-5.1); SODIUM 139 mmol/L (136-145)
[2018-07-04] MEDS: HYDROMORPHONE 2MG/ML 2 MG/ML ML IV PRN ×2 (05:58→13:14)
[2018-07-04] MEDS: METOPROLOL SUCCINATE 50 MG TAB XL PO SCH ×2 (08:17→19:52)
[2018-07-04] MEDS: ASPIRIN 81 MG CHEW TAB PO SCH (09:00)
[2018-07-04] MEDS: SENNOSIDES 8.6 MG TAB PO SCH ×2 (09:00→19:51)
[2018-07-04] MEDS: MORPHINE SULFATE INJ 4 MG/ML INJ IV PRN ×2 (09:24→22:37)
[2018-07-04] MEDS ORDERED: HEPARIN SOD/SOD CHLORIDE 1,000 ML ONE (09:32)
--- NOTE | 2018-07-04 09:44 | Progress Note ---
DATE: July 04, 2018 SUBJECTIVE: Patient ready to be taken for surgical intervention today later on for a thrombectomy and possible bypass surgery. OBJECTIVE VITAL SIGNS: Afebrile. Pulse rate 78, respirations 17, blood pressure 163/92. O2 saturation 99%. LABS: Noted. Has a white blood cell count of 10.3, hemoglobin 13.1, platelet count of 375. Discoloration with skin temperature being warm and cool to touch to the forefoot aspect, right foot. Gangrenous changes noted to the right great toe. Cyanosis noted to the 5th digit with some discoloration to all digits of the right foot. ASSESSMENT: Peripheral artery disease with gangrene with capsulitis surrounding the 1st metatarsophalangeal joint. PLAN: Patient will undergo surgical intervention today. Depending on surgery, will let the foot demarcate before any definitive procedure is done. Will continue with local wound care and IV antibiotics such as vancomycin and Zosyn. Job#: [id number] VIK
[2018-07-04] MEDS: NIFEDIPINE CR 30 MG TAB PO SCH (09:50)
--- NOTE | 2018-07-04 11:33 | Progress Note ---
DATE: July 04, 2018 CARDIOLOGY PROGRESS NOTE SUBJECTIVE: No new complaints. OBJECTIVE VITAL SIGNS: Temperature 98.3, heart rate 77, respiratory rate 16, blood pressure 176/98, O2 sat 99% on room air. GENERAL: No acute distress. Alert. NECK: No JVD. CHEST: Clear to auscultation. CARDIOVASCULAR: Regular rate and rhythm. Normal S1 and S2. ABDOMEN: Soft and nontender. EXTREMITIES: No edema. Stable gangrene of 1st toe and dusky discoloration of other right toes. CARDIOVASCULAR MEDICATIONS 1. Nifedipine 60 mg daily. 2. Metoprolol succinate 50 mg twice a day. 3. Atorvastatin 80 mg at bedtime. 4. Nicotine 21 mg p.r.n. 5. Aspirin 81 mg daily. 6. Heparin IV. STUDIES: White blood cells 10.3, hemoglobin 13, platelets 375. INR 0.9, PT 78. Creatinine 0.7, potassium 3.8, bicarbonate 23, calcium 9.4. Blood cultures no growth after 5 days. On telemetry, in sinus rhythm. ASSESSMENTS 1. Pending revascularization via surgical approach to the right superficial femoral artery in the vicinity of subacute thrombosis, on heparin intravenous as well as aspirin. 2. Continue perioperative beta-blockers. 3. Moderate risk for averse cardiovascular outcomes. 4. Hypertension, still somewhat labile. Continue antihypertensive as necessary while in-house. 5. Continue statin for dyslipidemia. 6. X-ray findings suggestive of chronic lung disease in the setting of smoking. Outpatient followup advised at a later date for further evaluation. Job#: [id number] VIK
[2018-07-04] MEDS ORDERED: HEPARIN SOD (PORCINE) 1000 UNIT/ML 30ML ONE ×2 (13:06→13:26)
[2018-07-04] MEDS ORDERED: MUPIROCIN 2% OINT 22 GM TUBE ONE ×2 (13:06→13:08)
[2018-07-04] MEDS ORDERED: PROTAMINE SULFATE 10 MG/ML 5 ML VIAL ONE (13:06)
[2018-07-04] MEDS ORDERED: THROMBIN FOR SOLN 5,000 UNIT VIAL ONE (13:06)
[2018-07-04] MEDS ORDERED: SODIUM CHLORIDE 0.9% 500ML 500 ML ONE ×3 (13:07→16:32)
[2018-07-04] MEDS ORDERED: GELATIN SPONGE 12-7MM ONE (13:07)
[2018-07-04] MEDS ORDERED: IOPAMIDOL 610MG/1ML 300 MG/ML VIAL IV ONE ×2 (13:07→15:04)
[2018-07-04] MEDS ORDERED: FENTANYL CITRATE/PF 100MCG/2 ML INJ ONE ×2 (17:53→18:11)
[2018-07-04] MEDS ORDERED: MIDAZOLAM HCL 2 MG/2 ML VIAL ONE (17:53)
[2018-07-04] MEDS ORDERED: MEPERIDINE HCL INJ 25 MG/ML VIAL ONE (18:42)
--- NOTE | 2018-07-04 18:52 | Operative Report ---
DATE OF PROCEDURE: July 04, 2018 PREOPERATIVE DIAGNOSES 1. Peripheral arterial disease. 2. Ischemic left lower extremity. 3. Hypertension. POSTOPERATIVE DIAGNOSES 1. Peripheral arterial disease. 2. Ischemic left lower extremity. 3. Hypertension. OPERATIONS PERFORMED 1. Popliteal artery thrombectomy. 2. Femoral popliteal bypass at above-knee level using prosthetic graft. 3. Intraoperative angiogram. FURNITURE PACKER: Leatha Novak (nursing staff). ANESTHESIA: General endotracheal. INDICATIONS: This is a 68-year-old man who presented with an ischemic right lower extremity. He had an ischemic great toe. Angiogram showed evidence of popliteal artery thrombus. Thrombectomy for revascularization was recommended. Prior to surgery, I described the operation to the patient, who was in the hospital by himself and did not have anybody he wanted me to call. I told him that the risks of surgery would include , bleeding, infection, heart attack, stroke, pneumonia, prolonged ICU stay, mechanical ventilation, tracheostomy, [id number] amputation, possibility of femoral popliteal bypass as documented in the consent and what I described to him, et cetera. I told him that after surgery there would be a risk of a higher amputation and that the right great toe would likely need amputation or further attention. Patient stated that he understood, had no further questions, had nobody that he wanted me to call, and wanted to proceed with surgery. FINDINGS: Popliteal artery thrombectomy did not restore adequate inflow. There was evidence of diffuse atherosclerotic disease in this patient who has a long history of smoking. A femoral popliteal bypass was performed. The femoral artery had excellent inflow, and an excellent palpable pulse was restored to the popliteal artery with strong Doppler signal restored to the posterior tibialis. PROCEDURE: The patient was taken to the operating room July 04, 2018, and placed supine upon the operating room table. General endotracheal anesthesia was smoothly induced. The anterior abdomen and both lower extremities were sterilely prepped and draped in the usual fashion using alcohol, prewash and Betadine scrub and solution. An incision was made along the medial knee and carried into the popliteal space. The popliteal artery was isolated and controlled. There was no pulse palpable. Patient was systemically heparinized. The popliteal artery was occluded proximally and distally. It was opened longitudinally. There was some blood within the popliteal artery with a faint pulsation. Thrombectomy/embolectomy was performed distally. No clot was retrieved. There was evidence of atherosclerosis. Proximally, the catheter would pass to 40 cm and could be withdrawn without difficulty but no pulsatile flow was restored. On withdrawing the catheter, it seemed as though there were atherosclerotic plaques that were the cause of the occlusion. There was a good palpable femoral pulse. Decision was made to proceed with femoral popliteal bypass. Incision was made over the right groin. Dissection was carried down to the inguinal ligament. Common femoral artery was isolated and controlled. It was of good quality and caliber. It had an excellent pulse. A tunnel was made connecting the femoral and popliteal artery incisions. It should be noted that prior to occluding the popliteal artery for the thrombectomy, the patient had been systemically heparinized using 1 mg/kg of heparin intravenously. Patient had also been on intravenous heparin preoperatively. Common femoral artery had been occluded proximally and distally. A longitudinal arteriotomy was created. There was excellent arterial inflow. End-to-side anastomosis of a 6 mm Propaten graft (the only 6 mm graft available) was anastomosed end-to-side fashion to the common femoral artery. Running 6-0 Prolene was used. Prior to completing the anastomosis, a 3.0 mm dilator passed easily proximally and distally and into the graft. The anastomosis was completed. Occluding instruments were removed. The graft filled without difficulty and had excellent flow. It was brought through the tunnel to the popliteal artery. Popliteal artery had been occluded previously proximal and distally. End-to-side anastomosis of graft to artery was performed using a running 6-0 Prolene after the graft had been cut to appropriate length. Prior to completing the distal anastomosis, a 3.0 mm dilator passed easily proximally and distally. The graft was deaired, and then the anastomosis was completed. Occluding instruments were removed. An excellent palpable pulse was restored to the popliteal artery. A strong Doppler signal was auscultated at the right posterior tibialis. Intraoperative angiogram was then performed. Catheter was introduced through the proximal prosthetic graft. The graft was occluded. Angiogram was performed. The distal anastomosis was widely patent with good runoff into the distal popliteal artery. Runoff via the posterior tibialis was also good. The catheter was withdrawn and the entry site into the graft oversewn. There was good hemostasis. No protamine was administered. Wounds were closed in layers using absorbable suture. Sterile dressings were applied. Sponge, instrument, and needle counts were correct both prior to and after wound closure. Independent search of the operative field by both the operating surgeon and nurse revealed no retained instruments or sponges. Patient tolerated the procedure well, was extubated in the operating room and taken to the recovery room in good condition. Job#: [id number] EV
[2018-07-04] MEDS ORDERED: D5.45%NS/KCL 20MEQ 1,000 ML IV ONE (19:30)
[2018-07-04] MEDS ORDERED: MORPHINE SULFATE INJ 4 MG/ML INJ IV PRN (19:30)
[2018-07-04] MEDS ORDERED: ATORVASTATIN 40 MG TAB PO SCH (21:00)
[2018-07-04] MEDS: ATORVASTATIN 40 MG TAB PO SCH (21:37)
[2018-07-04] MEDS: DOCUSATE SODIUM 100 MG CAP PO SCH (21:37)
[2018-07-04] MEDS ORDERED: HYDRALAZINE HCL 20 MG/ML VIAL IV PRN (22:45)
[2018-07-05] VITALS (26 sets, daily range): BP systolic 121–182; BP diastolic 48–103
[2018-07-05] MEDS: PIPER-TAZ 3.375 GM 50 ML IV SCH ×4 (00:33→17:29)
[2018-07-05] MEDS: VANCOMYCIN 1GM/NS 250 ML 250 ML IV SCH ×2 (02:03→12:43)
--- NOTE | 2018-07-05 02:04 | Consultation ---
DATE OF CONSULTATION: July 04, 2018 PULMONARY/CRITICAL CARE MEDICINE CONSULTATION PRIMARY CARE PHYSICIAN: Dr. Santiago Judd. REASON FOR REFERRAL: Postoperative stay. HISTORY: Mr. Perla is a pleasant 68-year-old gentleman with postoperative state. The patient was admitted to [facility] on June 28, 2018. The patient was having right foot cyanosis with gangrene encroaching on the great toe. The patient was found to have significant peripheral vascular disease based on Dopplers and the patient had an invasive vascular workup by kier hand. The patient was eventually found on peripheral angiography to have right superficial femoral artery primary thrombectomy with suboptimal results due to too high of a burden of thrombus. The patient was on anticoagulation but failed this therapy as well. The patient was referred for operative management. On July 04, 2018, the patient underwent a popliteal artery thrombectomy, femoropopliteal bypass at the above knee level using prosthetic graft and intraoperative angiograms. Significant part of the burden was found due to atherosclerotic vascular disease rather than active thrombus. 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 MEDICATIONS: List reviewed per electronic record. ALLERGIES: NO KNOWN DRUG ALLERGIES. SOCIAL HISTORY: No drinking. No drugs. The patient smoked from age 21 to 68, active, about one pack per day average. He used to work in [employer] for [employer] and retired for 1 year. He lives alone at [place], but has a cousin in [place]. He has one distant child that he is not close to. FAMILY HISTORY: Noncontributory. REVIEW OF SYSTEMS GENERAL: No weight changes. OPHTHALMOLOGIC: No double vision. ENT: No bloody nose. ENDOCRINE: No thyroid disease. PULMONARY: No asthma. CARDIAC: No heart attacks. GI: No constipation chronic. : No blood in urine. MUSCULOSKELETAL: Mild arthritis. DERMATOLOGIC: No rashes. PSYCHIATRIC: No depression. PHYSICAL EXAMINATION VITALS: Afebrile. Vital signs noted per electronic record. GENERAL: No acute distress. Alert and calm. Blood pressure mildly high on the monitor without symptoms as he is awake and well. No confusion. HEENT: Normocephalic and atraumatic. NECK: Supple. Throat midline. LUNGS: Decreased air entry but clear. CARDIOVASCULAR: S1 and S2. No murmurs, rubs or gallops. ABDOMEN: Soft and nontender. EXTREMITIES: No clubbing. No cyanosis. There is no edema. INTEGUMENT: No rash. There is right foot with small mottling, but with some dry gangrene at the big toe. LABS: Today, white count was 10, 40 hematocrit, 375,000 platelets. Potassium 3.8, BUN 16, 0.8 creatinine. LDL is 114, HDL is 33. TSH was 1.4, normal. Chest x-ray screening showed possible chronic changes versus atelectasis at the bases. IMPRESSION 1. Postoperative state, status post femoropopliteal bypass, right. 2. Severe peripheral artery disease. 3. 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 4. Hypertension. 5. History of cleft aneurysm and apparent stroke. 6. Chronic smoker. PLAN: Recommend slow blood pressure control, keep blood pressures less than 180 at least. Repeat blood count in the morning. Consider resuming antiplatelet therapy versus other necessary therapy probably tomorrow if he does well today. Continue serial checks of the leg pulses. Smoking cessation is highly recommended and I explained to him this is probably a big factor in his severe peripheral vascular disease. Continue local wound care. Maintain Silver in place for a few days at least until the patient is more mobile, probably greater than 5 days. Thank you very much, Dr. Judd and Dr. Min, for allowing me the chance to participate in the care of Mr. Perla. Do not hesitate to contact me if I can help in any way. Job#: [id number] VI
[2018-07-05] MEDS: MORPHINE SULFATE INJ 4 MG/ML INJ IV PRN ×3 (02:10→15:53)
[2018-07-05 04:46] LABS: BASOPHILS # (AUTO) 0.1 (0.0-0.1); BASOPHILS % 0.6 % (0.0-1.0); EOSINOPHILS # (AUTO) 0.1 (0.0-0.4); EOSINOPHILS % 0.5 % (0.0-6.0); HEMATOCRIT 34.7 % (38.2-49.6); HEMOGLOBIN 11.5 g/dL (14.0-18.0); LYMPHOCYTES # (AUTO) 1.3 (1.0-3.2); LYMPHOCYTES % 11.5 % (18.0-39.1); MEAN CORPUSCULAR HGB CONC 33.1 g/dL (31-35); MEAN CORPUSCULAR VOLUME 90.6 fL (81-99); MONOCYTES # (AUTO) 1.1 (0.2-0.8); MONOCYTES % 10.1 % (4.4-11.3); NEUTROPHILS # (AUTO) 8.5 (2.1-6.9); PLATELET COUNT 355 x10e3/uL (140-360); RED BLOOD COUNT 3.83 x10e6/uL (4.3-5.7)
[2018-07-05 05:18] LABS: ALANINE AMINOTRANSFERASE 58 IU/L (0-55); ALBUMIN 2.7 g/dL (3.5-5.0); ALBUMIN/GLOBULIN RATIO 0.7 (0.8-2.0); ALKALINE PHOSPHATASE 53 IU/L (40-150); ANION GAP 12.6 mmol/L (8-16); BLOOD UREA NITROGEN 16 mg/dL (7-26); BUN/CREATININE RATIO 20 (6-25); CALCIUM 9.4 mg/dL (8.4-10.2); CARBON DIOXIDE 22 mmol/L (22-29); CHLORIDE 107 mmol/L (98-107); CREATININE, SERUM 0.79 mg/dL (0.72-1.25); EST GLOMERULAR FILTRATION RATE > 60 ML/MIN (60-); GLUCOSE 101 mg/dL (74-118); MAGNESIUM 1.8 MG/DL (1.3-2.1); PHOSPHORUS 3.9 MG/DL (2.3-4.7); POTASSIUM 4.6 mmol/L (3.5-5.1); SODIUM 137 mmol/L (136-145)
[2018-07-05] MEDS: ASPIRIN 81 MG CHEW TAB PO SCH (08:03)
[2018-07-05] MEDS: DOCUSATE SODIUM 100 MG CAP PO SCH ×3 (08:03→21:21)
[2018-07-05] MEDS: NIFEDIPINE CR 30 MG TAB PO SCH (08:04)
[2018-07-05] MEDS: METOPROLOL SUCCINATE 50 MG TAB XL PO SCH ×2 (08:06→16:05)
[2018-07-05] MEDS: SENNOSIDES 8.6 MG TAB PO SCH ×2 (08:06→16:03)
[2018-07-05] MEDS: NICOTINE 21 MG/EA PATCH TOP PRN (08:07)
[2018-07-05] MEDS: MAGNESIUM HYDROXIDE 30 ML UDC PO SCH ×2 (08:33→16:06)
[2018-07-05] MEDS ORDERED: METOPROLOL TARTRATE 50 MG TAB PO SCH (09:00)
[2018-07-05] MEDS: HYDROCODONE/APAP 5MG-325MG TAB PO PRN ×4 (09:12→22:00)
--- NOTE | 2018-07-05 09:12 | Progress Note ---
DATE: July 05, 2018 SUBJECTIVE: Patient seen at bedside, doing better. According to the patient, he had thrombectomy and a bypass to the right lower extremity. OBJECTIVE: Skin temperature seems to be warmer to touch. Pedal pulses to the DP are palpable on this date but diminished. PT are also palpable. Still has some cyanosis noted to the 5th digit, right foot. VITALS: Temperature afebrile, pulse rate 77, respirations 16, blood pressure 160/86, O2 saturation 100%. LABS: Noted. White blood cell count 11.02, hemoglobin 11.5 with a platelet count of 355. Skin temperature warmer to touch to the right lower extremity as described above. ASSESSMENT: Status post revascularization, right lower extremity, with gangrenous changes to the right great toe. Cyanosis noted to the 5th digit with some discoloration to all toes. PLAN: Will continue to let the foot demarcate before any definitive procedure is done. Definitive procedure will be done sometime next week. Continue local wound care. Will continue IV antibiotics such as Zosyn and vancomycin. Job#: [id number]
--- NOTE | 2018-07-05 10:58 | Progress Note ---
DATE: July 05, 2018 MEDICINE PROGRESS NOTE I am covering for Dr. Min. SUBJECTIVE: Patient had a right lower extremity fem-pop procedure performed yesterday by vascular surgery. He has a necrotic right big toe, which will likely have amputation soon. He is currently doing well with no complaints. His vital signs are stable. He is still in the ICU. OBJECTIVE VITAL SIGNS: Temperature is 98.2, pulse 75, respiratory rate 18, blood pressure 163/80, satting 99% on room air. LAB FINDINGS: White count 11, hemoglobin 9.5, hematocrit 35, platelets 255. Coagulations are normal. Chemistry: Sodium 137, potassium 4.6, chloride 107, bicarb 22, anion gap 12, BUN 16, creatinine 0.79, glucose 101, calcium 9.4. LFTs are normal. Urinalysis negative. MICROBIOLOGY: Blood culture is negative. Urine culture is negative. IMAGING STUDIES: Nothing current. PHYSICAL EXAMINATION GENERAL: Not in acute distress. Alert and oriented times 3. Cooperative on examination. HEENT: Head is normocephalic and atraumatic. Eyes: Pupils equal, round and reactive to light bilaterally. Extraocular movements intact bilaterally. NECK: Supple. Good range of motion. Throat with no evidence of any erythema or exudates in the posterior pharynx. Has poor dentition. PULMONARY: Clear to auscultation bilaterally. No wheezing. No rales. No rhonchi. No crackles appreciated. CARDIOVASCULAR: Positive S1 and S2. No murmurs, rubs or gallops appreciated. ABDOMEN: Soft, nondistended and nontender to palpation. Bowel sounds present. MUSCULOSKELETAL: Strength is 5/5 throughout. No evidence of any musculoskeletal deficit on examination. No weakness appreciated. NEUROLOGICAL: Cranial nerves II through XII are grossly intact. No evidence of any neurological deficits on exam. SKIN: Intact. Warm to touch. Good cap refill. PSYCHIATRIC: Normal affect and mood. EXTREMITIES: No edema. Good range of motion throughout. IMPRESSION 1. Status post femoral-popliteal bypass on the right lower extremity. 2. Severe peripheral arterial disease. 3. Dry gangrene of the right big toe. 4. Hypertension. 5. Chronic smoker. PLAN: At this time, podiatry is following closely. He will likely have amputation of the right big toe. He is just status post fem-pop procedure performed yesterday. He is currently doing well with no complaints. Continue with pain control and plan of care. Get a.m. labs as well. Pulmonary is following. His vital signs are stable. Microbiology is all negative. He is currently on IV vancomycin and Zosyn, which we will continue. Job#: [id number] ARA
--- NOTE | 2018-07-05 12:41 | Progress Note ---
DATE: July 05, 2018 CARDIOLOGY PROGRESS NOTE SUBJECTIVE: No new complaints. OBJECTIVE VITAL SIGNS: Temperature 98.9, heart rate 78, respiratory rate 19, blood pressure 152/79, O2 sat 99% on room air. GENERAL: No acute distress. Alert. NECK: No JVD. CHEST: Clear to auscultation. CARDIOVASCULAR: Regular rate and rhythm. Normal S1 and S2. No S3. No S4. No murmurs or rubs. ABDOMEN: Soft, nontender, nondistended. EXTREMITIES: No cyanosis, clubbing, or edema. Right fem-pop bypass. Dressings in place. Good dorsalis pedis and posterior tibialis 1+ pulse to right lower extremity, 1st toe gangrene, improved color of 2nd to 5th toes. CARDIOVASCULAR MEDICATIONS: Reviewed. 1. Nifedipine. 2. Aspirin. 3. Nicotine. 4. Metoprolol. 5. Atorvastatin. 6. Zosyn antibiotic. STUDIES: Reviewed. White blood cells 11, hemoglobin 11.5, platelets 355. Creatinine 0.79, potassium 4.6, AST 49, ALT 58. Telemetry: Normal sinus rhythm. ASSESSMENTS 1. Status post right femoral-popliteal bypass. 2. First toe gangrene and dusky discoloration of other right toes. 3. Hypertension. 4. Chronic smoker, suspected intrinsic underlying lung disease. 5. History of brain aneurysm, status post neurosurgery. RECOMMENDATIONS 1. Continue current cardiovascular medications. 2. Pain control as needed. Job#: [id number] VIK
--- NOTE | 2018-07-05 13:13 | Progress Note ---
DATE: July 05, 2018 PULMONARY MEDICINE PROGRESS NOTE SUBJECTIVE: Mr. Perla was seen and examined at bedside. Blood pressure remains mildly elevated with heart rate often 70s and 80s. He is 99% oxygen saturation on room air FIO2. He has good vascular pulses of right foot. He did try to get up impulsively last night when he needed to use the restroom and had to be redirected to be in bed. REVIEW OF SYSTEMS: No headaches. No rash. OBJECTIVE VITALS: Afebrile. Vital signs noted per electronic record. GENERAL: No acute distress. Alert and calm. He is oriented right now. HEENT: Normocephalic and atraumatic. NECK: Supple. Throat midline. LUNGS: Bilateral air entry, clear. CARDIOVASCULAR: S1 and S2. No murmurs, rubs or gallops. ABDOMEN: Soft and nontender. EXTREMITIES: No clubbing. No cyanosis. There is trace edema to the right foot. INTEGUMENT: No rash. No purpura. Incisions are covered. LABS: Hemoglobin 11.5, white count 11, and platelets 355,000. Potassium 4.6, creatinine 0.8. IMPRESSION AND PLAN 1. Postoperative state: Status post right femoral popliteal bypass. 2. Severe peripheral vascular disease. 3. Ischemic right foot with dry gangrene on right big toe. 4. Intermittent confusion, not otherwise specified. 5. Suggested cerebrovascular accident on right temporal associated with aneurysmal area that was clipped. 6. Hypertension. Patient continues on beta blockers and these recently were titrated. Continue slow control blood pressure. Antibiotics per others. The patient should probably get vancomycin troughs in the next day or 2. IV fluids can be stopped. Continue Silver. Keep the patient in ICU, especially as the patient may be having some delirium intermittently. Will follow along closely. Will discuss with surgeon if he requires any blood thinners to be restarted. The patient is on aspirin. Consider DVT prophylaxis. Job#: [id number] DREA
[2018-07-05] MEDS ORDERED: ROCURONIUM BROMIDE 10 MG/ML 5ML VIAL ONE (18:05)
[2018-07-05] MEDS ORDERED: PROPOFOL IV EMULSION 10 MG/ML 20 ML VIAL ONE (18:05)
[2018-07-05] MEDS ORDERED: NEOSTIGMINE 5 MG/5ML SYR ONE (18:05)
[2018-07-05] MEDS ORDERED: DESFLURANE 240 ML BTL INH ONE (18:05)
[2018-07-05] MEDS ORDERED: ATROPINE SULFATE 1 MG/ML VIAL ONE (18:05)
[2018-07-05] MEDS ORDERED: EPHEDRINE SULFATE INJ 50 MG/10 ML SYR ONE (18:05)
[2018-07-05] MEDS ORDERED: ONDANSETRON HCL INJ 2 MG/ML VIAL ONE (18:05)
[2018-07-05] MEDS ORDERED: LIDOCAINE HCL 2% LOCAL INJ 5 ML SDV VIAL INJ ONE (18:05)
[2018-07-05] MEDS ORDERED: DEXAMETHASONE SOD PHOS INJ 4 MG/ML VIAL ONE (18:05)
[2018-07-05] MEDS: ATORVASTATIN 40 MG TAB PO SCH (21:21)
[2018-07-06] VITALS (25 sets, daily range): BP systolic 136–172; BP diastolic 74–93
[2018-07-06] MEDS: PIPER-TAZ 3.375 GM 50 ML IV SCH ×5 (00:30→23:20)
[2018-07-06] MEDS: HYDROCODONE/APAP 5MG-325MG TAB PO PRN ×3 (03:21→18:42)
[2018-07-06 05:03] LABS: BASOPHILS # (AUTO) 0.1 (0.0-0.1); BASOPHILS % 0.8 % (0.0-1.0); EOSINOPHILS # (AUTO) 0.4 (0.0-0.4); EOSINOPHILS % 3.2 % (0.0-6.0); HEMATOCRIT 33.1 % (38.2-49.6); LYMPHOCYTES # (AUTO) 1.6 (1.0-3.2); LYMPHOCYTES % 12.1 % (18.0-39.1); MEAN CORPUSCULAR HEMOGLOBIN 30.4 pg (28-32); MEAN CORPUSCULAR HGB CONC 33.2 g/dL (31-35); MEAN CORPUSCULAR VOLUME 91.4 fL (81-99); MONOCYTES # (AUTO) 1.4 (0.2-0.8); MONOCYTES % 10.6 % (4.4-11.3); NEUTROPHILS # (AUTO) 9.9 (2.1-6.9); NEUTROPHILS % 72.9 % (38.7-80.0); PLATELET COUNT 326 x10e3/uL (140-360); RED BLOOD COUNT 3.62 x10e6/uL (4.3-5.7); RED CELL DISTRIBUTION WIDTH 13.2 % (11.7-14.4)
[2018-07-06 05:35] LABS: ANION GAP 12.7 mmol/L (8-16); BLOOD UREA NITROGEN 21 mg/dL (7-26); BUN/CREATININE RATIO 26 (6-25); CALCIUM 9.2 mg/dL (8.4-10.2); CARBON DIOXIDE 24 mmol/L (22-29); CHLORIDE 108 mmol/L (98-107); EST GLOMERULAR FILTRATION RATE > 60 ML/MIN (60-); GLUCOSE 100 mg/dL (74-118); POTASSIUM 4.7 mmol/L (3.5-5.1); SODIUM 140 mmol/L (136-145)
[2018-07-06] MEDS: VANCOMYCIN 1GM/NS 250 ML 250 ML IV SCH ×2 (06:04→17:09)
--- NOTE | 2018-07-06 07:52 | Progress Note ---
DATE: July 06, 2018 SUBJECTIVE: Patient seen at bedside, doing somewhat better. Denies any history of fever, chills, nausea, or vomiting. Feeling his foot a little bit better. Decreased pain. OBJECTIVE: VITAL SIGNS: Afebrile. Pulse rate 83, respiration 20, blood pressure 171/82, O2 saturation 98%. EXTREMITIES: Gangrenous changes to the right lower extremity stabilizing. Has dry gangrene to the distal aspect of the right great toe somewhat proximal to the proximal interphalangeal joint. Has erythema surrounding the first MPJ with still some discoloration noted to the fifth digit, right foot. The other toes are looking somewhat better. They are still little bit cool to touch. LABS: Show white blood cell count of 13.5, hemoglobin 11.0, 33.1 on the hematocrit, and platelet count showing 326,000. Has a blood glucose of 100. ASSESSMENT: Status post vascular intervention to right lower extremity per Dr. Nixon with dry gangrene, capsulitis, and peripheral arterial disease. PLAN: Will continue to let the foot demarcate before any definitive procedure is done. Some type of surgery will be done sometime next week. Continue local wound care. Continue antibiotics. Job#: [id number]
[2018-07-06] MEDS: DOCUSATE SODIUM 100 MG CAP PO SCH ×3 (08:06→20:34)
[2018-07-06] MEDS: ASPIRIN 81 MG CHEW TAB PO SCH (08:06)
[2018-07-06] MEDS: MAGNESIUM HYDROXIDE 30 ML UDC PO SCH (08:06)
[2018-07-06] MEDS: METOPROLOL SUCCINATE 50 MG TAB XL PO SCH ×2 (08:07→16:06)
[2018-07-06] MEDS: NIFEDIPINE CR 30 MG TAB PO SCH (08:07)
[2018-07-06] MEDS: SENNOSIDES 8.6 MG TAB PO SCH (08:16)
[2018-07-06] MEDS: NICOTINE 21 MG/EA PATCH TOP PRN (09:00)
[2018-07-06] MEDS ORDERED: MAGNESIUM HYDROXIDE 30 ML UDC PO PRN (12:45)
--- NOTE | 2018-07-06 12:54 | Progress Note ---
DATE: July 06, 2018 MEDICINE PROGRESS NOTE SUBJECTIVE: Patient is doing well with no complaints. He is ambulating according to the nursing staff. No issues overnight. VITAL SIGNS: Temperature is 97.4, pulse 89, respiratory rate is 20, blood pressure 162/76, satting 98% on room air. LAB FINDINGS: White count 13.5, hemoglobin 11, hematocrit 33, platelets of 343. His chemistries were all found to be normal. MICROBIOLOGY: Cultures were negative. No recent imaging studies. PHYSICAL EXAMINATION GENERAL: Not in acute distress. Alert and oriented x3. Cooperative on examination. HEENT: Head is normocephalic and atraumatic. Eyes: Pupils equal, round and reactive to light bilaterally. Extraocular movements intact bilaterally. NECK: Supple. Good range of motion. Throat with no evidence of any erythema or exudates in the posterior pharynx. Has poor dentition. PULMONARY: Clear to auscultation bilaterally. No wheezing. No rales. No rhonchi. No crackles appreciated. CARDIOVASCULAR: Positive S1 and S2. No murmurs, rubs or gallops appreciated. ABDOMEN: Soft, nondistended, nontender to palpation. Bowel sounds present. MUSCULOSKELETAL: Strength is 5/5 throughout. No evidence of any musculoskeletal deficit on examination. No weakness appreciated. NEUROLOGICAL: Cranial nerves II through XII are grossly intact. No evidence of any neurological deficits on exam. SKIN: Intact. Warm to touch. Good cap refill. PSYCHIATRIC: Normal affect and mood. EXTREMITIES: No edema. Good range of motion throughout. IMPRESSIONS 1. Status post femoral-popliteal bypass on the right lower extremity. 2. Severe peripheral arterial disease. 3. Dry gangrene of the right big toe. 4. Hypertension. 5. Chronic smoker. PLAN: At this time, podiatry and vascular surgery are following . Patient will need amputation of the right big toe prior to being discharged home. Surgically he has been doing well with no other issues. Continue with IV antibiotics. Get a.m. labs and monitor very closely. All microbiology was found to be negative. Job#: [id number] VIK
[2018-07-06] MEDS: ENOXAPARIN SOD INJ 40 MG/0.4 ML SYR SC SCH (16:06)
--- NOTE | 2018-07-06 18:26 | Progress Note ---
DATE: July 06, 2018 CARDIOLOGY PROGRESS NOTE SUBJECTIVE: No new complaints. OBJECTIVE VITAL SIGNS: Temperature 97.4, heart rate 89, blood pressure 164/76, respiratory rate 20, O2 sat 98%. GENERAL: No acute distress, alert. NECK: No JVD. CHEST: Clear to auscultation. CARDIOVASCULAR: Regular rate and rhythm. Normal S1 and S2. No S3. No S4. ABDOMEN: Soft. Nontender. EXTREMITIES: Trace edema to right lower extremity. Palpable pulses. Warm lower extremities with good capillary refill, first toe dry gangrene stable, improving color of 2nd to 5th toes to the right lower extremity. No active pain. CARDIOVASCULAR MEDICATIONS: Reviewed 1. Aspirin 81 mg daily. 2. Atorvastatin 80 mg q.h.s. 3. Metoprolol succinate 50 mg twice a day. 4. Hydralazine p.r.n. 10 mg every 4 hours. 5. Lovenox 40 mg subcutaneous daily. STUDIES: Reviewed. Creatinine 0.8, potassium 4.7, chloride 24, hemoglobin 11, white blood cells 13.5, platelets 326. INR 0.9. AST 49, ALT 58. ASSESSMENT 1. PAD in the setting of subacute limb ischemia, now status post thrombectomy and PTFE fem-pop bypass to right lower extremity in the setting of 1st toe gangrene and early pregangrenous changes to other toes, now improving. 2. Hypertension. 3. Dyslipidemia. 4. Smoker. 5. Chronic lung disease suggested by chest x-ray. RECOMMENDATIONS 1. Continue current cardiovascular medications. 2. As blood pressure allows, we will continue antihypertensives. 3. Continue antiplatelet and statin. 4. When okay with CV surgery, transferred from ICU to intermediate care. 5. Gangrene-related amputation as an expression of podiatry expertise once foot demarcated well. Job#: [id number] NEVILLE
--- NOTE | 2018-07-06 19:58 | Progress Note ---
DATE: July 06, 2018 PULMONARY MEDICINE PROGRESS NOTE SUBJECTIVE: Mr. Perla was seen and examined at bedside. He continues to have slow progress. He was able to get up out of bed today. He had bowel movement. He is eating. No more confusional episodes. Silver is in place. REVIEW OF SYSTEMS: No headaches. No diarrhea. OBJECTIVE VITALS: Afebrile. Vital signs noted per electronic record. GENERAL: In no acute distress, alert and calm. HEENT: Normocephalic, atraumatic. Throat in midline. NECK: Supple. LUNGS: Bilateral air entry, clear. CARDIOVASCULAR: S1 and S2. No murmurs, rubs, or gallops. ABDOMEN: Soft, nontender. EXTREMITIES: No clubbing. No cyanosis. There is only trace edema to the right lower extremity pretibial area mostly without significant swelling. Pulses remain intact to right foot x2. INTEGUMENT: No rash, incisions postoperative noted with bandages. LABS: White count 14, hematocrit 33, platelets 326. BUN 21, creatinine 0.8, potassium 4.7. IMPRESSION 1. Postoperative state, status post right femoropopliteal bypass. 2. Peripheral vascular disease, atherosclerotic, significant. 3. Smoking dependency. 4. Dry gangrene to right great toe. 5. History of aneurysmal clipping right temporal with associated apparent stroke. Continue to follow the patient. He can leave the ICU, but keep him in the ICU for some close monitoring for behavior given the event yesterday of confusion. Keep Silver in place. He can still get out of bed, but additionally we will engage him with PT and he could start to ambulate. Lovenox is ongoing as well as aspirin. Job#: [id number] NEVILLE
[2018-07-06] MEDS: ATORVASTATIN 40 MG TAB PO SCH (20:34)
[2018-07-06] MEDS ORDERED: SODIUM CHLORIDE 0.9% 250ML 250 ML ONE (23:13)
[2018-07-06] MEDS: MORPHINE SULFATE INJ 4 MG/ML INJ IV PRN (23:29)
[2018-07-07] VITALS (9 sets, daily range): BP systolic 124–160; BP diastolic 62–85
[2018-07-07] MEDS: VANCOMYCIN 1GM/NS 250 ML 250 ML IV SCH ×4 (05:21→17:54)
[2018-07-07] MEDS: HYDROCODONE/APAP 5MG-325MG TAB PO PRN ×3 (05:26→16:56)
[2018-07-07 05:29] LABS: BASOPHILS # (AUTO) 0.1 (0.0-0.1); BASOPHILS % 0.7 % (0.0-1.0); EOSINOPHILS # (AUTO) 0.5 (0.0-0.4); HEMATOCRIT 33.6 % (38.2-49.6); LYMPHOCYTES # (AUTO) 1.9 (1.0-3.2); MEAN CORPUSCULAR HEMOGLOBIN 30.4 pg (28-32); MEAN CORPUSCULAR HGB CONC 32.7 g/dL (31-35); MEAN CORPUSCULAR VOLUME 92.8 fL (81-99); MONOCYTES # (AUTO) 1.5 (0.2-0.8); MONOCYTES % 11.5 % (4.4-11.3); NEUTROPHILS # (AUTO) 8.6 (2.1-6.9); NEUTROPHILS % 68.4 % (38.7-80.0); PLATELET COUNT 329 x10e3/uL (140-360); RED BLOOD COUNT 3.62 x10e6/uL (4.3-5.7); RED CELL DISTRIBUTION WIDTH 13.2 % (11.7-14.4)
[2018-07-07 05:54] LABS: ANION GAP 12.7 mmol/L (8-16); BLOOD UREA NITROGEN 19 mg/dL (7-26); BUN/CREATININE RATIO 25 (6-25); CALCIUM 9.3 mg/dL (8.4-10.2); CARBON DIOXIDE 24 mmol/L (22-29); CHLORIDE 111 mmol/L (98-107); CREATININE, SERUM 0.75 mg/dL (0.72-1.25); EST GLOMERULAR FILTRATION RATE > 60 ML/MIN (60-); GLUCOSE 94 mg/dL (74-118); POTASSIUM 3.7 mmol/L (3.5-5.1); SODIUM 144 mmol/L (136-145)
[2018-07-07] MEDS: PIPER-TAZ 3.375 GM 50 ML IV SCH ×4 (07:36→23:43)
[2018-07-07] MEDS: ASPIRIN 81 MG CHEW TAB PO SCH (08:35)
[2018-07-07] MEDS: DOCUSATE SODIUM 100 MG CAP PO SCH ×3 (08:35→20:08)
[2018-07-07] MEDS: NIFEDIPINE CR 30 MG TAB PO SCH (08:45)
[2018-07-07] MEDS: METOPROLOL SUCCINATE 50 MG TAB XL PO SCH ×2 (08:45→20:08)
[2018-07-07] MEDS ORDERED: METOPROLOL SUCCINATE 50 MG TAB XL PO ONE (10:00)
--- NOTE | 2018-07-07 12:32 | Progress Note ---
DATE: July 07, 2018 CARDIOLOGY PROGRESS NOTE SUBJECTIVE: No new complaints. OBJECTIVE VITAL SIGNS: Temperature 98.3, heart rate 80, blood pressure 153/82, respiratory rate 16, O2 sat 98%. GENERAL: No acute distress, alert. NECK: No JVD. CHEST: Clear to auscultation. CARDIOVASCULAR: Regular rate and rhythm. Normal S1 and S2. No S3. No S4. ABDOMEN: Soft. Nontender. EXTREMITIES: Trace edema to right lower extremity. Color of 2nd to 5th right toes continues to improve; however, the 5th toe remains somewhat dusky. First toe has dry gangrene, stable. Palpable pulses right dorsalis pedis and right posterior tibial arteries. Fem-pop bypass wound covered with dressings. CARDIOVASCULAR MEDICATIONS: Reviewed 1. Atorvastatin 80 mg q.h.s. 2. Nicotine patch 21 mg daily. 3. Hydralazine 10 mg every 4 hours. 4. Nifedipine 60 mg daily. 5. Metoprolol succinate increasing from 50 mg twice a day to 100 a.m and 50 p.m. dosing starting today. 6. Magnesium hydroxide 30 mg b.i.d. 7. Aspirin 81 mg daily. 8. Vancomycin and Zosyn antibiotics. STUDIES: Reviewed. Creatinine 0.75, hemoglobin 11, white blood cells 12.5, platelets 329. AST 49, ALT 58, alkaline phosphatase 53. ASSESSMENT: A 68-year-old man with; 1. Uncontrolled blood pressure now with up titration of metoprolol dosing today. Continue rest of cardiovascular mediations. 2. Peripheral arterial disease, now status post fem-pop bypass. Gangrenous changes overall improving with demarcation seemingly limited mostly to first toe with this big toe still somewhat dusky. 3. Suspected lung chronic disease recent chest x-ray. 4. Dyslipidemia. RECOMMENDATIONS 1. Await demarcation, podiatry to decide timing for limited amputation. 2. Continue current cardiovascular medications. Job#: [id number] DANA
--- NOTE | 2018-07-07 13:20 | Progress Note ---
DATE: July 07, 2018 I am covering for Dr. Sifuentes today. SUBJECTIVE: Patient reports some improvement. He was moved out of the intensive care unit. He does not complain of pain in his feet. OBJECTIVE VITAL SIGNS: Stable. HEENT: Shows no facial swelling or erythema. CARDIAC: Regular rate and rhythm with normal S1 and S2. LUNGS: Auscultation of lungs shows clear breath sounds bilaterally. There is no wheezing. ABDOMEN: Soft and nontender. There is no rebound or guarding. EXTREMITIES: No leg edema or calf tenderness. There is some dry gangrene of the great toe on the right foot. There is good dorsalis pedis and posterior tibial pulse in that foot. IMPRESSION 1. Dry gangrene of great toe the right foot. 2. Severe peripheral vascular disease requiring femoral popliteal bypass. PLAN 1. Continue physical therapy as tolerated. 2. Continue current anticoagulation as per cardiology. 3. Physical therapy. Job#: [id number] SIENA
--- NOTE | 2018-07-07 13:41 | Progress Note ---
DATE: July 07, 2018 MEDICINE PROGRESS NOTE SUBJECTIVE: Patient doing well today with no other complaints. He is transferred from ICU to [facility]. OBJECTIVE VITAL SIGNS: He is afebrile and normotensive. Respiratory rate is stable. GENERAL: Not in acute distress. Alert and oriented x3. Cooperative on examination. HEENT: Head is normocephalic and atraumatic. Eyes: Pupils equal, round, and reactive to light bilaterally. Extraocular movements intact bilaterally. Throat with no evidence of any erythema or exudates in the posterior pharynx. Has poor dentition. NECK: Supple. Good range of motion. PULMONARY: Clear to auscultation bilaterally. No wheezing. No rales. No rhonchi. No crackles appreciated. CARDIOVASCULAR: Positive S1 and S2. No murmurs, rubs, or gallops appreciated. ABDOMEN: Soft, nondistended. MUSCULOSKELETAL: No evidence of any musculoskeletal deficit on examination. No weakness appreciated. NEUROLOGICAL: Cranial nerves II through XII are grossly intact. No evidence of any neurological deficits on exam. SKIN: Intact. Warm to touch. Good cap refill. PSYCHIATRIC: Normal affect and mood. EXTREMITIES: No edema. Good range of motion throughout. IMPRESSION 1. Status post femoral-popliteal bypass on the right lower extremity. 2. Severe peripheral arterial disease. 3. Dry gangrene of the right big toe. 4. Hypertension. 5. Chronic smoker. PLAN: He is doing good from a vascular standpoint. He is ambulating and doing well. He will get amputation of the right big toe later this week by podiatry. Continue same plan of care. IV antibiotics. A.m. labs. Job#: [id number] LPA
--- NOTE | 2018-07-07 13:42 | Progress Note ---
PHYSICIAN CANCELED THE DICTATION DATE: July 07, 2018 MEDICINE PROGRESS NOTE SUBJECTIVE: Patient is doing well today with no complaints. He is using still BiPAP and he has difficulty breathing. He is hypoxic upon ambulation and movement. LAB FINDINGS: White count of 12.5, hemoglobin 11, hematocrit 36, platelets of 329. Coagulations are normal. MICROBIOLOGY: Blood and urine cultures were found to be negative. PHYSICAL EXAMINATION VITAL SIGNS: Temperature is 98.3, pulse 72, respiratory rate is 20, blood pressure 125/68, and satting 98% on room air now. GENERAL: Not in acute distress. Alert and oriented x3. Cooperative on examination. HEENT: Head is normocephalic and atraumatic. Eyes: Pupils equal, round and reactive to light bilaterally. Extraocular movements intact bilaterally. NECK: Supple. Good range of motion. Throat with no evidence of any erythema or exudates in the posterior pharynx. Has poor dentition. PULMONARY: Clear to auscultation bilaterally. No wheezing. No rales. No rhonchi. No crackles appreciated. CARDIOVASCULAR: Positive S1 and S2. No murmurs, rubs or gallops appreciated. ABDOMEN: Soft, nondistended, nontender to palpation. Bowel sounds present. MUSCULOSKELETAL: Strength is 5/5 throughout. No evidence of any musculoskeletal deficit on examination. No weakness appreciated. NEUROLOGICAL: Cranial nerves II through XII are grossly intact. No evidence of any neurological deficits on exam. SKIN: Intact. Warm to touch. Good cap refill. PSYCHIATRIC: Normal affect and mood. EXTREMITIES: No edema. Good range of motion throughout. Job#: [id number] SIENA
--- NOTE | 2018-07-07 15:30 | Progress Note ---
DATE: July 07, 2018 SUBJECTIVE: Patient seen at bedside. Doing somewhat better. Having some discomfort to the right lower extremity, but better since he has had his angioplasty done. OBJECTIVE VITALS: Afebrile, pulse rate 72, respirations 20, blood pressure 125/68, O2 saturation 98%. EXTREMITIES: Pedal pulses are diminished. Skin temperature warm and cool to touch. Cyanosis noted to the 5th digit and some discoloration to digits 2 through 4 with gangrenous changes noted to the left great toe with some pain along the 1st metatarsophalangeal joint, left foot. LABS: Noted. Has a white blood cell count dropping to 12.5, hemoglobin 11.0, hematocrit 33.3 with a platelet count of 329. ASSESSMENT: Peripheral artery disease with dry gangrene, pregangrenous changes noted to the forefoot aspect including toes. PLAN: We will continue to let the foot demarcate. We will start physical therapy. Continue IV antibiotics. Continue local wound care. Job#: [id number] LPA
[2018-07-07] MEDS: ENOXAPARIN SOD INJ 40 MG/0.4 ML SYR SC SCH (16:47)
[2018-07-07] MEDS: NICOTINE 21 MG/EA PATCH TOP PRN (17:54)
[2018-07-07] MEDS: MORPHINE SULFATE INJ 4 MG/ML INJ IV PRN (19:48)
[2018-07-07] MEDS: ATORVASTATIN 40 MG TAB PO SCH (20:08)
[2018-07-08] VITALS (8 sets, daily range): BP systolic 128–140; BP diastolic 74–81
[2018-07-08] MEDS: MORPHINE SULFATE INJ 4 MG/ML INJ IV PRN ×3 (00:31→08:57)
[2018-07-08] MEDS: PIPER-TAZ 3.375 GM 50 ML IV SCH ×2 (05:34→12:26)
[2018-07-08] MEDS: VANCOMYCIN 1GM/NS 250 ML 250 ML IV SCH (06:49)
[2018-07-08] MEDS: DOCUSATE SODIUM 100 MG CAP PO SCH ×3 (08:56→21:09)
[2018-07-08] MEDS: ASPIRIN 81 MG CHEW TAB PO SCH (08:56)
[2018-07-08] MEDS: METOPROLOL SUCCINATE 50 MG TAB XL PO SCH ×2 (08:56→21:10)
[2018-07-08] MEDS: NIFEDIPINE CR 30 MG TAB PO SCH (08:56)
--- NOTE | 2018-07-08 12:17 | Progress Note ---
DATE: July 08, 2018 SUBJECTIVE: Patient seen at bedside. Doing well. Denies any history of fever, chills, nausea, or vomiting. OBJECTIVE VITAL SIGNS: Afebrile, pulse rate 73, respirations 20, blood pressure 140/81, O2 saturation 96%. EXTREMITIES: Fifth toe right foot starting to become a little bit more cyanotic. Discoloration noted with skin temperature cool to touch. Right great toe is stable, has erythema surrounding the first MPJ. LABS: Noted. ASSESSMENT 1. Gangrene, right great toe. 2. Capsulitis with pre-gangrenous changes, 5th digit right foot with some discoloration of digits 2 through 4, right lower extremity. PLAN: We will continue to let the foot demarcated before any definitive procedure is performed. We will continue current medications such as aspirin, vancomycin, and Zosyn. Continue offloading. We will continue to follow. Job#: [id number] ABHINAV
[2018-07-08] MEDS ORDERED: HYDRALAZINE HCL 25 MG TAB PO PRN (14:45)
[2018-07-08] MEDS ORDERED: ONDANSETRON HCL 4 MG ORAL DISINTEGRATING TAB PO PRN (14:45)
[2018-07-08] MEDS ORDERED: CLOPIDOGREL BISULFATE 75 MG TAB PO ONE (15:00)
--- NOTE | 2018-07-08 15:57 | Progress Note ---
DATE: July 08, 2018 CARDIOLOGY PROGRESS NOTE SUBJECTIVE: No complaints. OBJECTIVE VITAL SIGNS: Temperature 98.1, heart rate 73, blood pressure 140/81, O2 sat 96%, respiratory rate 20. GENERAL: In no acute distress. Alert. NECK: No JVD. CHEST: Clear to auscultation. CARDIOVASCULAR: Regular rate and rhythm. Normal S1 and S2. No S3. No S4. ABDOMEN: Soft, nontender, nondistended. EXTREMITIES: No cyanosis, clubbing, or edema. Left first toe gangrenous. Fifth toe continues to remains with cyanotic tip. Rest of the toes continue to improve color walker. CARDIOVASCULAR MEDICATIONS: Reviewed; 1. Nicotine. 2. Metoprolol. 3. Atorvastatin. 4. Nifedipine. 5. Aspirin. STUDIES: Reviewed. Creatinine 0.7. Hemoglobin 11, white blood cells 12.5, platelets 329. ASSESSMENT 1. Subacute limb ischemia, status post right femoral popliteal bypass with gangrene of right first toe and discoloration of fifth toe. Other toes continue to improve color walker, and possible dorsalis pedis and posterior tibialis to the right lower extremity on exam today. 2. Hypertension. 3. Dyslipidemia. RECOMMENDATIONS: Continue current cardiovascular medications. Job#: [id number] MARJ
[2018-07-08] MEDS: DOXYCYCLINE HYCLATE TABLET 100 MG TAB PO SCH (17:58)
[2018-07-08] MEDS: HYDROCODONE/APAP 10MG-325MG TAB PO PRN (18:02)
[2018-07-08] MEDS: NICOTINE 21 MG/EA PATCH TOP PRN (18:03)
[2018-07-08] MEDS: ATORVASTATIN 40 MG TAB PO SCH (21:09)
[2018-07-09] VITALS (7 sets, daily range): BP systolic 127–147; BP diastolic 69–81
[2018-07-09] MEDS: HYDROCODONE/APAP 10MG-325MG TAB PO PRN ×4 (06:36→21:49)
[2018-07-09] MEDS: ASPIRIN 81 MG CHEW TAB PO SCH (08:29)
[2018-07-09] MEDS: CLOPIDOGREL BISULFATE 75 MG TAB PO SCH (08:29)
[2018-07-09] MEDS: DOCUSATE SODIUM 100 MG CAP PO SCH ×3 (08:29→21:49)
[2018-07-09] MEDS: DOXYCYCLINE HYCLATE TABLET 100 MG TAB PO SCH ×2 (08:30→16:37)
[2018-07-09] MEDS: METOPROLOL SUCCINATE 50 MG TAB XL PO SCH ×2 (08:30→21:49)
[2018-07-09] MEDS: NIFEDIPINE CR 30 MG TAB PO SCH (08:30)
[2018-07-09 09:05] LABS: HEMATOCRIT 35.4 % (38.2-49.6); HEMOGLOBIN 11.7 g/dL (14.0-18.0); MEAN CORPUSCULAR HEMOGLOBIN 30.7 pg (28-32); MEAN CORPUSCULAR HGB CONC 33.1 g/dL (31-35); MEAN CORPUSCULAR VOLUME 92.9 fL (81-99); PLATELET COUNT 373 x10e3/uL (140-360); RED BLOOD COUNT 3.81 x10e6/uL (4.3-5.7); RED CELL DISTRIBUTION WIDTH 12.9 % (11.7-14.4)
--- NOTE | 2018-07-09 09:08 | Progress Note ---
DATE: July 09, 2018 SUBJECTIVE: Patient seen at bedside, having some discomfort to the right lower extremity. Denies any history of fever, chills, nausea, or vomiting. OBJECTIVE: VITAL SIGNS: Afebrile. Pulse rate 76, respirations 20, blood pressure 147/81 with an O2 saturation of 97% at room air. EXTREMITIES: There is more cyanosis noted to the fifth digit, right foot on this date, cool to touch. Gangrenous changes overlying the right great toe stable with erythema surrounding the first metatarsophalangeal joint. LABS: Show a white blood cell count dropping to 12.5, hemoglobin 11.0, hematocrit 33.6 with a platelet count of 329,000. ASSESSMENT: Pre-gangrene with cyanosis, fifth digit, right; dry gangrene, right great toe with capsulitis with pedal pulses diminished. PLAN: Will continue to let the foot demarcate before definitive procedure is performed. Continue IV antibiotics, local wound care. INR, PT, and PTT were ordered with a CBC with diff. Job#: [id number]
[2018-07-09 09:09] LABS: PROTHROMBIN TIME 14.1 seconds (11.9-14.5)
[2018-07-09 10:09] LABS: ANISOCYTOSIS SLIGHT; EOSINOPHILS % (MANUAL) 5 % (0-7); LYMPHOCYTES % (MANUAL) 11 % (19-48); MONOCYTES % (MANUAL) 3 % (3.4-9.0); NEUTROPHILS % (MANUAL) 77 % (40-74); PLATELET ESTIMATE ADEQUATE; PLATELET MORPHOLOGY COMMENT NORMAL; RBC MORPHOLOGY COMMENT NORMAL
[2018-07-09] MEDS: MUPIROCIN 2% OINT 22 GM TUBE TOP SCH (11:36)
--- NOTE | 2018-07-09 17:05 | Progress Note ---
DATE: July 09, 2018 PULMONARY MEDICINE PROGRESS NOTE SUBJECTIVE: Mr. Perla was seen and examined at bedside. The Silver is in place that was pulled out earlier. He is still awaiting voiding. No altered mental status episodes. Right foot is still stable with stable gangrene, but right 5th toe is with a dusky appearance. REVIEW OF SYSTEMS: No headaches, no rash. OBJECTIVE VITAL SIGNS: Afebrile. Vital signs noted per electronic record. GENERALLY: No acute distress, alert and calm. HEENT: Normocephalic, atraumatic. NECK: Supple. Throat midline. LUNGS: Bilateral air entry, clear. CARDIOVASCULAR: S1 and S2. No murmurs, rubs or gallops. ABDOMINAL: Soft, nontender. EXTREMITIES: No clubbing, no cyanosis. There is only minimal trace right foot edema. INTEGUMENT: No rash. No purpura. LABS: White count 13, hematocrit 35, platelets 373. IMPRESSION AND PLAN 1. Postoperative state, status post right femoral popliteal bypass surgery. 2. Severe peripheral vascular disease. 3. Postoperative pain, much better. 4. Chronic smoker. Continue smoking cessation. Await trial of voiding for success. Continue local wound care. Patient now on Plavix plus aspirin. Will follow up closely on this treatment. Nicotine patch still on. Job#: [id number] NEFTALY
--- NOTE | 2018-07-09 21:31 | Progress Note ---
DATE: July 09, 2018 CARDIOLOGY PROGRESS NOTE SUBJECTIVE: No complaints. PHYSICAL EXAMINATION: VITAL SIGNS: Temperature 99 degrees, heart rate 76, blood pressure 147/81, respiratory rate 20, O2 sat 97% on room air. GENERAL: In no acute distress, alert. NECK: No JVD. CHEST: Clear to auscultation. CARDIOVASCULAR: Regular rate and rhythm. Normal S1 and S2. No S3, no S4. ABDOMEN: Soft. EXTREMITIES: No edema. Right first toe with black dry gangrene and left fifth toe with slight worsening cyanotic dusky discoloration. Other toes second through fourth looking much better with 2+ right posterior tibial and dorsalis pedis pulses. Femoral bypass skin incision scars look okay, healing well, no associated erythema or secretions. CARDIOVASCULAR MEDICATIONS: Reviewed. Atorvastatin, metoprolol, aspirin, clopidogrel, nifedipine, metoprolol, hydralazine. STUDIES: Reviewed. Creatinine 0.7. Hemoglobin 11.7, white blood cells 13.9, platelets 373,000. INR 1. AST 49, ALT 58. ASSESSMENT: 1. Peripheral arterial disease, status post right femoropopliteal bypass with gangrene of first toe and discoloration and early gangrene of fifth right toe. 2. Hypertension. 3. Dyslipidemia. 4. Chest x-ray, chronic lung changes in the setting of smoking concerning for chronic obstructive pulmonary disease, pending outpatient evaluation. RECOMMENDATIONS: 1. Continue current cardiovascular medications. 2. Consider up-titration of antihypertensives tomorrow if remains uncontrolled, I have been gradually up-titrating medications. 3. Podiatry to decide on timing for limited amputation, fifth toe still with some discoloration and changes demarcation. Job#: [id number]
[2018-07-09] MEDS: ATORVASTATIN 40 MG TAB PO SCH (21:49)
[2018-07-10] VITALS (7 sets, daily range): BP systolic 122–155; BP diastolic 75–92
[2018-07-10 05:03] LABS: BASOPHILS # (AUTO) 0.1 (0.0-0.1); EOSINOPHILS # (AUTO) 0.6 (0.0-0.4); EOSINOPHILS % 5.3 % (0.0-6.0); HEMATOCRIT 33.7 % (38.2-49.6); HEMOGLOBIN 10.9 g/dL (14.0-18.0); LYMPHOCYTES # (AUTO) 1.8 (1.0-3.2); LYMPHOCYTES % 15.5 % (18.0-39.1); MEAN CORPUSCULAR HEMOGLOBIN 29.9 pg (28-32); MEAN CORPUSCULAR HGB CONC 32.3 g/dL (31-35); MEAN CORPUSCULAR VOLUME 92.3 fL (81-99); MONOCYTES % 8.9 % (4.4-11.3); PLATELET COUNT 384 x10e3/uL (140-360); RED BLOOD COUNT 3.65 x10e6/uL (4.3-5.7); RED CELL DISTRIBUTION WIDTH 12.8 % (11.7-14.4)
[2018-07-10 05:52] LABS: ANION GAP 13.3 mmol/L (8-16); BLOOD UREA NITROGEN 26 mg/dL (7-26); BUN/CREATININE RATIO 33 (6-25); CALCIUM 9.5 mg/dL (8.4-10.2); CARBON DIOXIDE 25 mmol/L (22-29); CHLORIDE 109 mmol/L (98-107); EST GLOMERULAR FILTRATION RATE > 60 ML/MIN (60-); GLUCOSE 97 mg/dL (74-118); POTASSIUM 4.3 mmol/L (3.5-5.1); SODIUM 143 mmol/L (136-145)
[2018-07-10] MEDS: ASPIRIN 81 MG CHEW TAB PO SCH (08:17)
[2018-07-10] MEDS: NIFEDIPINE CR 30 MG TAB PO SCH (08:17)
[2018-07-10] MEDS: MUPIROCIN 2% OINT 22 GM TUBE TOP SCH (08:17)
[2018-07-10] MEDS: DOXYCYCLINE HYCLATE TABLET 100 MG TAB PO SCH ×2 (08:17→16:13)
[2018-07-10] MEDS: DOCUSATE SODIUM 100 MG CAP PO SCH ×3 (08:17→20:57)
[2018-07-10] MEDS: CLOPIDOGREL BISULFATE 75 MG TAB PO SCH (08:17)
[2018-07-10] MEDS: METOPROLOL SUCCINATE 50 MG TAB XL PO SCH ×2 (08:18→20:58)
--- NOTE | 2018-07-10 09:37 | Progress Note ---
DATE: July 10, 2018 SUBJECTIVE: Patient seen at bedside, doing well. Denies any history of fever, chills, nausea, or vomiting. OBJECTIVE: VITAL SIGNS: Afebrile. Pulse rate 72, respirations 20, blood pressure 145/92, O2 saturation 96%. EXTREMITIES: Gangrenous changes to the right great toe are stable down to very close to proximal interphalangeal joint. Has erythema surrounding the first metatarsophalangeal joint secondary to hypertrophic first metatarsal head. Cyanosis to the fifth digit, right foot, but the skin temperature is warm to touch. LABS: Noted. Has a white blood cell count dropping to 11.5, hemoglobin 10.9, hematocrit 33.7 with a platelet count of 384,000. INR of 1.0 with a PT of 14.1. ASSESSMENT: Gangrene, capsulitis with cyanosis, fifth digit, right. PLAN: Patient will be taken for surgical intervention tomorrow. Surgery will consist of amputation of the right great toe, possible I and D with partial resection of first metatarsal head with flap closure. Will continue to observe the fifth digit, right foot. There is a potential for further surgery if not responsive to current medications. The proposed surgery plus risks and complications were reviewed in great detail. Patient understands. No guarantees or warranties were given. Will be kept n.p.o. after midnight. Job#: [id number]
[2018-07-10] MEDS: HYDROCODONE/APAP 10MG-325MG TAB PO PRN ×2 (17:38→22:15)
--- NOTE | 2018-07-10 18:17 | Progress Note ---
DATE: July 10, 2018 PULMONARY MEDICINE PROGRESS NOTE SUBJECTIVE: Mr. Perla was seen and examined at bedside. Patient continues to have steady progress. Patient continues to have good warmth to the foot. His 1st big toe is still ischemic appearing. The 5th toe is looking more dusky. REVIEW OF SYSTEMS: No headaches. No rash. OBJECTIVE VITALS: Afebrile. Vital signs noted per electronic record. GENERAL: In no acute distress. Alert and calm. HEENT: Normocephalic and atraumatic. NECK: Supple. Throat midline. LUNGS: Bilateral air entry. Mostly clear. CARDIOVASCULAR: S1 and S2. No murmurs, rubs or gallops. ABDOMEN: Soft and nontender. EXTREMITIES: No clubbing. No cyanosis. There is no edema. INTEGUMENT: No rash. No purpura. IMPRESSION AND PLAN 1. Peripheral vascular disease. 2. Status post femoral popliteal bypass. 3. Dry gangrene of the foot. 4. Hypertension. 5. Chronic smoker. Continue smoking cessation. Patient should continue at this time with nicotine patches to help facilitate. Continue medications including Plavix and aspirin as per cardiology. The patient is preoperatively being evaluated by podiatry for possible amputation of the big toe tomorrow. Patient to continue local wound care. Job#: [id number] DREA
[2018-07-10] MEDS: ATORVASTATIN 40 MG TAB PO SCH (20:57)
[2018-07-11] VITALS (8 sets, daily range): BP systolic 135–153; BP diastolic 67–73
--- NOTE | 2018-07-11 00:16 | Progress Note ---
DATE: July 10, 2018 CARDIOLOGY PROGRESS NOTE SUBJECTIVE: No new complaints. PHYSICAL EXAMINATION: VITAL SIGNS: Temperature 99.2, heart rate 72, blood pressure 135/77, respiratory rate 20, O2 sat 96%. GENERAL: In no acute distress, alert. NECK: No JVD. CHEST: Clear to auscultation. CARDIOVASCULAR: Regular rate and rhythm. Normal S1 and S2. No S3, no S4. ABDOMEN: Soft, nontender. EXTREMITIES: No edema. Right first toe gangrene and right fifth toe dusky discoloration. 2+ pulses in right dorsalis pedis and posterior tibial. CARDIOVASCULAR MEDICATIONS: Reviewed. Aspirin 81 mg daily, atorvastatin 80 mg nightly, nicotine 21 mg daily, nifedipine 60 mg daily, hydralazine 25 mg every 4 hours, metoprolol succinate 100 mg every 12 hours, clopidogrel 75 mg daily. STUDIES: Reviewed. Potassium 4.3, creatinine is 0.8. Hemoglobin 10.9. INR 1. Normal transaminases. ASSESSMENT: 1. Peripheral arterial disease, status post right femoropopliteal bypass with gangrene of first right toe and pre-gangrene of right fifth toe. 2. Hypertension. 3. Dyslipidemia. 4. Abnormal chest x-ray concerning for chronic lung disease in the setting of active smoking. RECOMMENDATIONS: 1. Moderate risk for adverse cardiovascular outcomes with noncardiac surgery. Continue perioperative beta blockers. 2. Preserved left ventricular systolic function on echocardiogram. 3. Continue rest of cardiovascular medications. 4. As an outpatient, will need further evaluation by pulmonary as well as cardiology. Job#: [id number]
[2018-07-11 05:19] LABS: BASOPHILS # (AUTO) 0.1 (0.0-0.1); BASOPHILS % 1.2 % (0.0-1.0); EOSINOPHILS # (AUTO) 0.7 (0.0-0.4); HEMATOCRIT 33.6 % (38.2-49.6); HEMOGLOBIN 11.1 g/dL (14.0-18.0); LYMPHOCYTES # (AUTO) 1.5 (1.0-3.2); LYMPHOCYTES % 13.3 % (18.0-39.1); MEAN CORPUSCULAR HEMOGLOBIN 30.7 pg (28-32); MEAN CORPUSCULAR VOLUME 92.8 fL (81-99); MONOCYTES # (AUTO) 1.2 (0.2-0.8); MONOCYTES % 10.1 % (4.4-11.3); NEUTROPHILS % 69.1 % (38.7-80.0); PLATELET COUNT 401 x10e3/uL (140-360); RED BLOOD COUNT 3.62 x10e6/uL (4.3-5.7); RED CELL DISTRIBUTION WIDTH 12.7 % (11.7-14.4)
[2018-07-11 05:42] LABS: BLOOD UREA NITROGEN 28 mg/dL (7-26); BUN/CREATININE RATIO 33 (6-25); CALCIUM 9.8 mg/dL (8.4-10.2); CARBON DIOXIDE 23 mmol/L (22-29); CHLORIDE 109 mmol/L (98-107); CREATININE, SERUM 0.84 mg/dL (0.72-1.25); EST GLOMERULAR FILTRATION RATE > 60 ML/MIN (60-); GLUCOSE 95 mg/dL (74-118); SODIUM 142 mmol/L (136-145)
[2018-07-11] MEDS ORDERED: BETAMETHASONE DISODIUM PHOS 6 MG/ML VIAL ONE (06:15)
[2018-07-11] MEDS ORDERED: BACITRACIN 50,000 UNIT VIAL ONE (06:16)
[2018-07-11] MEDS ORDERED: LIDOCAINE HCL 1% LOCAL INJ 20 ML VIAL ONE (06:16)
[2018-07-11] MEDS ORDERED: BUPIVACAINE HCL 0.5% 10ML MPF VIAL INJ ONE (06:17)
--- NOTE | 2018-07-11 08:11 | Operative Report ---
DATE OF PROCEDURE: July 11, 2018 PREOPERATIVE DIAGNOSES 1. Gangrene, left great toe. 2. Abscess, left foot. 3. Capsulitis of 1st metatarsophalangeal joint, left foot. POSTOPERATIVE DIAGNOSES 1. Gangrene, left great toe. 2. Abscess, left foot. 3. Capsulitis of 1st metatarsophalangeal joint, left foot. OPERATIVE PROCEDURES 1. Incision and drainage of abscess, left foot. 2. Amputation of left great toe. 3. Partial resection of 1st metatarsal head. 4. Rotational flap closure. ANESTHESIA: General. HEMOSTASIS: None. PROCEDURE IN DETAIL: Patient was taken into the operating room and placed on the operating room table in the supine position. Following induction of general anesthesia by the anesthesiologist, the right foot was then prepped and draped in the usual aseptic manner. The following procedure was then performed. PROCEDURE #1: I and D of abscess, right foot. Attention was directed to the distal aspect of the right foot where a curvilinear incision was performed overlying the proximal edge of the gangrene. An abscess was encountered and drained, and cultured for aerobic and anaerobic growth. The abscess was noted going straight down to bone. Secondary to the necrosis, at this point: PROCEDURE #2: Amputation of the right great toe was performed. The toe was then disarticulated at the metatarsophalangeal joint and sent for pathological analysis. PROCEDURE #3: Partial resection of the 1st metatarsal head. An incision was then made dorsally overlying the metatarsophalangeal joint. The capsule was then reflected via the use of a longitudinal incision. The 1st metatarsal head exostosis was then excised via the use of an oscillating saw and then smoothed down via the use of a rotating bur. PROCEDURE #4: Rotational flap closure. After properly and copiously flushing the area with saline, the incision to the dorsal aspect of the right lower extremity was then extended dorsal laterally. The incision to the plantar aspect was extended plantar medially to create a flap. The flap was then dorsally displaced. The capsule was then reapproximated utilizing 3-0 Vicryl. The skin was reapproximated utilizing 3-0 nylon in a horizontal mattress type fashion. Approximately, 10 mL of 0.5% plain Marcaine plus 5 mL of 1% Xylocaine plain were used to achieve local anesthesia to the above-mentioned surgical area. Sterile dressing was applied. Patient was then transferred from the OR to recovery with vital signs stable and neurovascular intact. Patient will remain in the hospital. Will continue to monitor his 5th digit. It is starting to become a little bit more cyanotic. If it does not respond, he will need further surgery. Surgery to be attempted. If any, is undetermined at this time secondary to the demarcation of the foot. Job#: [id number] DREA
--- NOTE | 2018-07-11 08:53 | Diagnostic Imaging Report ---
FOOT RIGHT AP LAT - 3 views HISTORY: Pain. Gangrene. Cellulitis. COMPARISON: None available. FINDINGS: Bones: No acute displaced fracture. Osseous alignment is within normal limits. Disarticulation of the first great toe at the MTP joint. There is soft tissue swelling and subcutaneous gas. Diffuse osteopenia in the remaining MTP joints. Joints: The joint spaces are well-maintained. Soft tissues: Soft tissue swelling and subcutaneous gas at the first MTP joint. IMPRESSION: 1. Disarticulation of the first great toe at the MTP joint. There is soft tissue swelling and subcutaneous gas. This is consistent with known cellulitis and gangrene. 2. Osteopenia in the remaining MTP joints, which may be reactive. However, osteomyelitis can't excluded. Signed by: Dr. Irwin Mckee M.D. on 07/11/2018 8:50 AM
[2018-07-11] MEDS: ASPIRIN 81 MG CHEW TAB PO SCH (09:00)
[2018-07-11] MEDS: CLOPIDOGREL BISULFATE 75 MG TAB PO SCH (09:00)
[2018-07-11] MEDS: NIFEDIPINE CR 30 MG TAB PO SCH (09:00)
[2018-07-11] MEDS: DOCUSATE SODIUM 100 MG CAP PO SCH ×3 (09:00→16:43)
[2018-07-11] MEDS: MUPIROCIN 2% OINT 22 GM TUBE TOP SCH (09:00)
[2018-07-11] MEDS: METOPROLOL SUCCINATE 50 MG TAB XL PO SCH ×2 (09:00→20:26)
[2018-07-11] MEDS: DOXYCYCLINE HYCLATE TABLET 100 MG TAB PO SCH ×2 (09:00→16:43)
--- NOTE | 2018-07-11 12:56 | Progress Note ---
DATE: July 11, 2018 PULMONARY MEDICINE PROGRESS NOTE SUBJECTIVE: Mr. Perla was seen and examined at bedside. He went to the OR today. The patient had successful incision and drainage of abscess of the left foot and then an amputation of the left great toe. The patient had a rotational flap closure as well as partial resection of the 1st metatarsal head. The patient has already recovered after surgery. Postoperative x-ray was done of the foot demonstrating no foreign body in the report. He does feel better after surgery. REVIEW OF SYSTEMS: No headaches. No rash. OBJECTIVE VITALS: Afebrile. Vital signs noted per electronic record. GENERAL: In no acute distress. Alert and calm. HEENT: Normocephalic and atraumatic. NECK: Supple. Throat midline. LUNGS: Bilateral air entry, rare rhonchi. CARDIOVASCULAR: S1 and S2. No murmurs, rubs or gallops. ABDOMEN: Soft and nontender. EXTREMITIES: No clubbing. No cyanosis. There is only trace edema to the left foot. INTEGUMENT: No rash. No purpura. Right foot is covered. LABS: Reviewed per electronic record. IMPRESSION AND PLAN 1. Peripheral vascular disease. 2. Status post femoral-popliteal bypass, right. 3. Dry gangrene of right great toe, status post amputation and rotational flap with closure. 4. Persistent ischemic changes to the 5th toe under surveillance. 5. Hypertension. At this time, continue to follow the patient. Wear the nicotine patch. He is on antibiotics per infectious disease expert. Job#: [id number]
[2018-07-11] MEDS: HYDROCODONE/APAP 10MG-325MG TAB PO PRN ×2 (13:00→20:35)
[2018-07-11] MEDS ORDERED: MORPHINE SULFATE 2 MG/ML SYR IV PRN (15:00)
[2018-07-11] MEDS: MORPHINE SULFATE INJ 4 MG/ML INJ IV PRN ×2 (15:40→19:02)
[2018-07-11] MEDS ORDERED: PROPOFOL IV EMULSION 10 MG/ML 20 ML VIAL ONE (18:41)
[2018-07-11] MEDS ORDERED: LIDOCAINE HCL 2% LOCAL INJ 5 ML SDV VIAL INJ ONE (18:41)
[2018-07-11] MEDS ORDERED: SEVOFLURANE INHAL SOLN 250 ML PEN BTL ONE (18:41)
[2018-07-11] MEDS ORDERED: ONDANSETRON HCL INJ 2 MG/ML VIAL ONE (18:41)
[2018-07-11] MEDS: ATORVASTATIN 40 MG TAB PO SCH (20:26)
[2018-07-11] MEDS ORDERED: FENTANYL CITRATE/PF 100MCG/2 ML INJ ONE (21:23)
[2018-07-11] MEDS ORDERED: MIDAZOLAM HCL 2 MG/2 ML VIAL ONE (21:23)
[2018-07-12] VITALS (7 sets, daily range): BP systolic 111–166; BP diastolic 66–79
--- NOTE | 2018-07-12 01:55 | Progress Note ---
DATE: July 11, 2018 CARDIOLOGY PROGRESS NOTE SUBJECTIVE: No complaints. PHYSICAL EXAMINATION VITAL SIGNS: Temperature 97.4, heart rate 66, blood pressure 130/72, respiratory rate 20, and O2 sat 96%. GENERAL: In no acute distress, alert. NECK: No JVD. CHEST: Clear to auscultation. CARDIOVASCULAR: Regular rate and rhythm. Normal S1 and S2. No S3, no S4. No murmur, rub, or gallop. ABDOMEN: Soft, nontender. EXTREMITIES: No edema. Status post first toe amputation today. CARDIOVASCULAR MEDICATIONS: Reviewed. 1. Atorvastatin 80 mg daily. 2. Metoprolol succinate mg every 12 hours. 3. Nicotine 21-mg patch daily. 4. Nifedipine 60 mg daily. 5. Clopidogrel 75 mg daily. 6. Aspirin 81 mg daily. STUDIES: Reviewed. Creatinine 0.8. Hemoglobin 11. 401. INR 1. ASSESSMENT 1. Peripheral arterial disease, status post right femoropopliteal bypass and first toe amputation. 2. Dyslipidemia. 3. Hypertension. 4. Suspected chronic lung disease. RECOMMENDATION: Continue current cardiovascular medications. Job#: [id number]
[2018-07-12] MEDS: MORPHINE SULFATE INJ 4 MG/ML INJ IV PRN ×3 (04:05→19:02)
[2018-07-12 05:46] LABS: BASOPHILS # (AUTO) 0.1 (0.0-0.1); BASOPHILS % 1.1 % (0.0-1.0); EOSINOPHILS # (AUTO) 0.8 (0.0-0.4); EOSINOPHILS % 7.2 % (0.0-6.0); HEMATOCRIT 30.6 % (38.2-49.6); HEMOGLOBIN 9.9 g/dL (14.0-18.0); LYMPHOCYTES # (AUTO) 1.2 (1.0-3.2); LYMPHOCYTES % 10.7 % (18.0-39.1); MEAN CORPUSCULAR HEMOGLOBIN 29.8 pg (28-32); MEAN CORPUSCULAR HGB CONC 32.4 g/dL (31-35); MEAN CORPUSCULAR VOLUME 92.2 fL (81-99); MONOCYTES # (AUTO) 1.3 (0.2-0.8); MONOCYTES % 11.6 % (4.4-11.3); NEUTROPHILS # (AUTO) 7.5 (2.1-6.9); NEUTROPHILS % 69.1 % (38.7-80.0); PLATELET COUNT 355 x10e3/uL (140-360); RED BLOOD COUNT 3.32 x10e6/uL (4.3-5.7); RED CELL DISTRIBUTION WIDTH 12.7 % (11.7-14.4)
[2018-07-12 06:04] LABS: ANION GAP 12.9 mmol/L (8-16); BLOOD UREA NITROGEN 26 mg/dL (7-26); BUN/CREATININE RATIO 29 (6-25); CARBON DIOXIDE 24 mmol/L (22-29); CHLORIDE 107 mmol/L (98-107); CREATININE, SERUM 0.89 mg/dL (0.72-1.25); EST GLOMERULAR FILTRATION RATE > 60 ML/MIN (60-); GLUCOSE 93 mg/dL (74-118); POTASSIUM 3.9 mmol/L (3.5-5.1); SODIUM 140 mmol/L (136-145)
[2018-07-12] MEDS: DOCUSATE SODIUM 100 MG CAP PO SCH ×3 (08:40→21:00)
[2018-07-12] MEDS: CLOPIDOGREL BISULFATE 75 MG TAB PO SCH (08:40)
[2018-07-12] MEDS: ASPIRIN 81 MG CHEW TAB PO SCH (08:40)
[2018-07-12] MEDS: DOXYCYCLINE HYCLATE TABLET 100 MG TAB PO SCH ×2 (08:42→17:00)
[2018-07-12] MEDS: METOPROLOL SUCCINATE 50 MG TAB XL PO SCH ×2 (08:42→21:00)
[2018-07-12] MEDS: NIFEDIPINE CR 30 MG TAB PO SCH (08:42)
[2018-07-12] MEDS: MUPIROCIN 2% OINT 22 GM TUBE TOP SCH (09:00)
--- NOTE | 2018-07-12 09:27 | Progress Note ---
DATE: July 12, 2018 SUBJECTIVE: Patient is doing well from surgery. Denies history of fever, chills, nausea, or vomiting. OBJECTIVE: Vitals: Afebrile. Vital signs stable. Has some cyanotic discoloration getting worse of the 5th digit, right foot, unrelated to surgery. ASSESSMENT: Cyanosis and pregangrenous changes noted of the 5th digit, right foot. Doing well status post right foot surgery. PLAN: Will continue to let the toe demarcate. Patient understands if it does not turn around surgery will be warranted and needed. Will determine what type of surgery will be performed sometime next week upon complete demarcation of the toe. Job#: [id number]
--- NOTE | 2018-07-12 13:08 | Progress Note ---
DATE: July 12, 2018 PULMONARY MEDICINE PROGRESS NOTE SUBJECTIVE: Mr. Perla was seen and examined at the bedside. He had bowel movements. He is eating. He is using the urinal for most of his voiding. Room air FIO2. His groin incision site is still covered with dry bandage. Knee site incision is dry, clean and intact. REVIEW OF SYSTEMS: No headaches. No rash. OBJECTIVE VITALS: Afebrile. Vital signs noted per electronic record. GENERAL: In no acute distress. Alert and calm. HEENT: Normocephalic and atraumatic. NECK: Supple. Throat midline. LUNGS: Bilateral air entry clear. CARDIOVASCULAR: S1 and S2. No murmurs, rubs or gallops. ABDOMEN: Soft and nontender. EXTREMITIES: No clubbing. There is no generalized cyanosis. No edema. There is a dusky appearance to the right 5th toe per history, but now it is covered. INTEGUMENT: No rash. No purpura. IMPRESSION AND PLAN 1. Postoperative state: Status post femoral popliteal bypass. 2. Peripheral vascular disease. 3. Evolving ischemic right 5th toe. 4. Dry gangrene, 1st right toe: Status post amputation. Continue local wound care. Will ask surgeon for directions on the groin site. Podiatry suggests they may need 4 or 5 more days to see if the 5th toe is salvageable and may consider early amputation. Continue smoking cessation. Job#: [id number] DREA
--- NOTE | 2018-07-12 18:16 | Progress Note ---
DATE: July 12, 2018 CARDIOLOGY PROGRESS NOTE SUBJECTIVE: No new complaints. OBJECTIVE VITAL SIGNS: Temperature 97.2, heart rate 71, blood pressure 134/80, respiratory rate 22, O2 sat 94%. GENERAL: In no acute distress. Alert. NECK: No JVD. CHEST: Clear to auscultation. CARDIOVASCULAR: Regular rate and rhythm. Normal S1 and S2. No S3, no S4. ABDOMEN: Soft, nontender. EXTREMITIES: No edema. Right foot wound covered with dressings. wounds covered with dressings. CARDIOVASCULAR MEDICATIONS: Reviewed. 1. Atorvastatin 80 mg nightly. 2. Aspirin 81 mg daily. 3. Nicotine patch 21 mg daily. 4. Metoprolol succinate 100 mg every 12 hours. 5. Nifedipine 60 mg daily. 6. Clopidogrel 75 mg daily. STUDIES: Reviewed. Creatinine 0.89. Hemoglobin 9.9. White blood cells 10.5. Platelets 355. INR 1. AST is 49, ALT 58. ASSESSMENT 1. Peripheral arterial disease status post right femoral popliteal bypass. 2. First toe gangrene status post toe amputation. 3. Fifth toe cyanotic discoloration undergoing observation for further improvement and/or demarcation with Podiatry. 4. Hypertension. 5. Dyslipidemia. 6. Suspected chronic lung disease in the setting of active smoking. RECOMMENDATIONS 1. Continue current cardiovascular medications. 2. Await demarcation or healing of fifth right toe, defer to Podiatry, might need further amputation of fifth toe depending on progression. Good pulses on exam to right foot. Job#: [id number] EV
[2018-07-12] MEDS: ATORVASTATIN 40 MG TAB PO SCH (21:00)
[2018-07-13] VITALS (8 sets, daily range): BP systolic 130–173; BP diastolic 62–86
[2018-07-13] MEDS: MORPHINE SULFATE INJ 4 MG/ML INJ IV PRN
[2018-07-13 05:50] LABS: BASOPHILS # (AUTO) 0.1 (0.0-0.1); BASOPHILS % 1.2 % (0.0-1.0); EOSINOPHILS # (AUTO) 0.7 (0.0-0.4); EOSINOPHILS % 7.2 % (0.0-6.0); HEMATOCRIT 30.2 % (38.2-49.6); HEMOGLOBIN 10.1 g/dL (14.0-18.0); LYMPHOCYTES # (AUTO) 1.4 (1.0-3.2); MEAN CORPUSCULAR HEMOGLOBIN 30.4 pg (28-32); MEAN CORPUSCULAR HGB CONC 33.4 g/dL (31-35); MONOCYTES # (AUTO) 1.3 (0.2-0.8); MONOCYTES % 12.1 % (4.4-11.3); NEUTROPHILS # (AUTO) 6.7 (2.1-6.9); NEUTROPHILS % 65.1 % (38.7-80.0); PLATELET COUNT 387 x10e3/uL (140-360); RED BLOOD COUNT 3.32 x10e6/uL (4.3-5.7); RED CELL DISTRIBUTION WIDTH 12.6 % (11.7-14.4)
[2018-07-13 06:18] LABS: ANION GAP 11.8 mmol/L (8-16); BLOOD UREA NITROGEN 24 mg/dL (7-26); BUN/CREATININE RATIO 29 (6-25); CALCIUM 9.1 mg/dL (8.4-10.2); CARBON DIOXIDE 24 mmol/L (22-29); CHLORIDE 110 mmol/L (98-107); CREATININE, SERUM 0.83 mg/dL (0.72-1.25); EST GLOMERULAR FILTRATION RATE > 60 ML/MIN (60-); GLUCOSE 93 mg/dL (74-118); POTASSIUM 3.8 mmol/L (3.5-5.1); SODIUM 142 mmol/L (136-145)
[2018-07-13] MEDS: CLOPIDOGREL BISULFATE 75 MG TAB PO SCH (08:52)
[2018-07-13] MEDS: DOXYCYCLINE HYCLATE TABLET 100 MG TAB PO SCH ×2 (08:52→16:31)
[2018-07-13] MEDS: METOPROLOL SUCCINATE 50 MG TAB XL PO SCH ×2 (08:52→20:32)
[2018-07-13] MEDS: NIFEDIPINE CR 30 MG TAB PO SCH (08:52)
[2018-07-13] MEDS: DOCUSATE SODIUM 100 MG CAP PO SCH ×3 (08:52→20:31)
[2018-07-13] MEDS: MUPIROCIN 2% OINT 22 GM TUBE TOP SCH (08:52)
[2018-07-13] MEDS: ASPIRIN 81 MG CHEW TAB PO SCH (08:52)
[2018-07-13] MEDS ORDERED: MUPIROCIN 2% OINT 22 GM TUBE TOP SCH (09:00)
--- NOTE | 2018-07-13 09:07 | Progress Note ---
DATE: July 13, 2018 SUBJECTIVE: Patient seen at bedside, having some discomfort to the right lower extremity, not the incision area, but the distal aspect of the fifth digit, right foot. Also has erythema surrounding the fifth metatarsophalangeal joint, right lower extremity. OBJECTIVE: VITAL SIGNS: Afebrile. Pulse rate 64, respirations 20, blood pressure 145/86, O2 saturation 96%. EXTREMITIES: Incision site was inspected. Flap is viable. Distal gangrenous changes noted to the fifth digit, right foot with erythema surrounding the fifth metatarsophalangeal joint. LABS: Noted. Has a white blood cell count of 10.3, hemoglobin 10.1 with a platelet count of 387,000. CURRENT MEDICATIONS: Noted and listed in the chat including oral doxycycline. ASSESSMENT: Gangrene fifth toe, right foot demarcating with capsulitis/tailor's bunion, right lower extremity with peripheral arterial disease. PLAN: Will continue to let the foot demarcate. Definitive surgical procedure to that area will be done possibly on Monday or Monday. Proposed surgery at this point will be partial amputation of toe with partial resection of fifth metatarsal head, right foot. Will let the foot continue to demarcate, may need a more proximal amputation depending on how this is looking on Monday. Job#: [id number]
--- NOTE | 2018-07-13 11:50 | Progress Note ---
DATE: July 13, 2018 CARDIOLOGY PROGRESS NOTE SUBJECTIVE: No complaints. OBJECTIVE VITAL SIGNS: Temperature 98.5, heart rate 95, respiratory rate 18, blood pressure 173/83, O2 sat 99%. GENERAL: In no acute distress. Alert. NECK: No JVD. CHEST: Clear to auscultation. CARDIOVASCULAR: Regular rate and rhythm. Normal S1, S2. ABDOMEN: Soft, nontender, nondistended. EXTREMITIES: No edema. Right foot covered with dressings. CARDIOVASCULAR MEDICATIONS: Reviewed. 1. Aspirin 81 mg daily. 2. Atorvastatin 80 mg nightly. 3. Nicotine patch 21 mg daily. 4. Nifedipine 60 mg daily. 5. Hydralazine 25 mg every 4 hours. 6. Metoprolol succinate 100 mg every 12 hours. 7. Clopidogrel 75 mg daily. STUDIES: Reviewed. Creatinine 0.8, glucose 93. Hemoglobin 10.1, platelets 837, white blood cells 10. ASSESSMENTS 1. Peripheral arterial disease, status post femoral popliteal bypass and 1st toe amputation with 5th toe dusky discoloration, early gangrene. 2. Hypertension. 3. Dyslipidemia. 4. Chronic lung disease suspected by chest x-ray in the setting of active smoking history. RECOMMENDATIONS: Continue current cardiovascular medications and await demarcation of foot. Job#: [id number] VIK
--- NOTE | 2018-07-13 13:06 | Progress Note ---
DATE: July 13, 2018 PULMONARY MEDICINE PROGRESS NOTE SUBJECTIVE: Mr. Perla was seen and examined at the bedside. Has 97% oxygen saturation. Blood pressure is on the mildly high side. Case updated with surgeon regarding further wound care and postoperative needs. Did have a bowel movement yesterday. Between cardiology and podiatry, they are still awaiting demarcation of the 5th toe of the foot. REVIEW OF SYSTEMS: No headaches. No bleeding. OBJECTIVE VITALS: Afebrile. Vital signs noted per electronic record. GENERAL: In no acute distress. Alert and calm. HEENT: Normocephalic and atraumatic. NECK: Supple. Throat midline. LUNGS: Bilateral air entry clear. CARDIOVASCULAR: S1 and S2. No murmurs, rubs or gallops. ABDOMEN: Soft and nontender. EXTREMITIES: No clubbing. No cyanosis. There is only trace right foot edema. INTEGUMENT: No rash. No purpura. Incisions are clean, dry and intact. IMPRESSION AND PLAN 1. Postoperative state status post femoral-popliteal bypass surgery. 2. Severe peripheral vascular disease. 3. Evolving right 5th toe gangrene, ischemic digit. 4. Active smoking. Continue smoking cessation. Nicotine placement continued. He remains on antiplatelet agents as recommended by vascular expert. The patient will have further time to allow demarcation of the right 5th digit ischemia. Likely for amputation early next week. Job#: [id number]
[2018-07-13] MEDS: ATORVASTATIN 40 MG TAB PO SCH (20:31)
[2018-07-14] VITALS (7 sets, daily range): BP systolic 112–147; BP diastolic 58–75
[2018-07-14] MEDS: MORPHINE SULFATE INJ 4 MG/ML INJ IV PRN (00:42)
[2018-07-14] MEDS: NIFEDIPINE CR 30 MG TAB PO SCH (09:02)
[2018-07-14] MEDS: CLOPIDOGREL BISULFATE 75 MG TAB PO SCH (09:02)
[2018-07-14] MEDS: ASPIRIN 81 MG CHEW TAB PO SCH (09:02)
[2018-07-14] MEDS: DOCUSATE SODIUM 100 MG CAP PO SCH ×3 (09:02→21:24)
[2018-07-14] MEDS: METOPROLOL SUCCINATE 50 MG TAB XL PO SCH ×2 (09:03→21:24)
[2018-07-14] MEDS: DOXYCYCLINE HYCLATE TABLET 100 MG TAB PO SCH ×2 (09:03→17:28)
[2018-07-14] MEDS: HYDROCODONE/APAP 10MG-325MG TAB PO PRN ×2 (10:47→18:48)
--- NOTE | 2018-07-14 13:44 | Progress Note ---
DATE: July 14, 2018 PULMONARY MEDICINE PROGRESS NOTE SUBJECTIVE: Mr. Perla was seen and examined at bedside. He continues to have steady progress. He is not more mobile. He is having daily dry dressing change to the right groin. There is no excoriations. No leakiness and drainage from that incision site. Patient is eating. He also has a bowel movement right now. REVIEW OF SYSTEMS: No headaches, no rash. OBJECTIVE VITALS: Afebrile. Vital signs noted per electronic record. GENERAL: In no acute distress, alert and calm. HEENT: Normocephalic, atraumatic. NECK: Supple. Throat midline. LUNGS: Bilateral air entry clear. CARDIOVASCULAR: S1 and S2. No murmurs, rubs, or gallops. ABDOMEN: Soft, nontender. EXTREMITIES: No clubbing, no cyanosis. There is only trace edema to the right foot. INTEGUMENT: No rash. No purpura. The right foot is covered. LABS: No new updates. IMPRESSION AND PLAN 1. Postoperative state, status post femoral-popliteal bypass. 2. Peripheral vascular disease, severe. 3. Evolving ischemic right 5th toe. 4. Postoperative state, status post amputation of right great toe. Continue current treatment at this time. Patient will have continued wound care to the incision sites. Patient will be continued on the cardiac medications. He is still awaiting further demarcation of the ischemic 5th digit to see if need to be amputated, which seems likely and what level needs amputation. Job#: [id number] MARJ
--- NOTE | 2018-07-14 14:45 | Progress Note ---
DATE: July 14, 2018 INCOMPLETE DICTATION PULMONARY MEDICINE PROGRESS NOTE SUBJECTIVE: Mr. Perla was seen and examined at bedside. Continues to show slow progress Job#: [id number] LPA
[2018-07-14] MEDS: MUPIROCIN 2% OINT 22 GM TUBE TOP SCH (15:05)
--- NOTE | 2018-07-14 15:55 | Progress Note ---
DATE: July 14, 2018 SUBJECTIVE: Patient seen at bedside, in no distress. OBJECTIVE VITAL SIGNS: Afebrile. Vital signs stable. EXTREMITIES: Gangrenous changes to the 5th digit continue to get a little bit worse. Has erythema surrounding the 5th metatarsophalangeal joint with cellulitis. Pedal pulses are diminished. SKIN: Temperature warm to touch. LABS: Has a white blood cell count of 10.3. ASSESSMENT: Peripheral artery disease, capsulitis with tailor's bunion with gangrenous changes and possible abscess, right foot. PLAN: We will continue local wound care. Continue IV antibiotics. We will continue let the foot demarcate. Definitive procedure will be done on Monday morning. He will be kept n.p.o. after midnight on Monday. Job#: [id number] MARJ
--- NOTE | 2018-07-14 18:48 | Progress Note ---
DATE: July 14, 2018 CARDIOLOGY PROGRESS NOTE SUBJECTIVE: No new complaints. PHYSICAL EXAMINATION VITAL SIGNS: Temperature 96.7, heart rate 74, blood pressure 128/58, respiratory rate 18, O2 sat 96%. GENERAL: No acute distress. Alert. NECK: No JVD. CHEST: Clear to auscultation. CARDIOVASCULAR: Regular rate and rhythm. Normal S1 and S2. ABDOMEN: Soft, nontender. EXTREMITIES: No edema, but foot covered with dressings. Fem-pop bypass incision scar is healing okay. CARDIOVASCULAR MEDICATIONS 1. Aspirin 81 mg daily. 2. Nicotine 21 mcg daily patch. 3. Nifedipine 60 mg daily. 4. Atorvastatin 80 mg q.h.s. 5. Hydralazine 25 mg every 4 hours. 6. Clopidogrel 75 mg daily. 7. Metoprolol 100 mg every 12 hours. STUDIES: Reviewed. Creatinine 0.8. Hemoglobin 10.1, white blood cells is 10.3, platelets 387. INR 1. AST 49, ALT 58. ASSESSMENT 1. Peripheral arterial disease, status post femoral popliteal bypass. 2. Chronic lung disease, smoker. 3. Hypertension. 4. Lipidemia. RECOMMENDATIONS 1. Anticipate limited amputation to fifth digit in the next several days depending on continued demarcation. 2. Continue current cardiovascular medications for hypertension and dyslipidemia. Job#: [id number] RTDelgado
[2018-07-14] MEDS: ATORVASTATIN 40 MG TAB PO SCH (21:24)
[2018-07-15] VITALS (9 sets, daily range): BP systolic 125–181; BP diastolic 67–88
[2018-07-15] MEDS: METOPROLOL SUCCINATE 50 MG TAB XL PO SCH ×2 (08:15→20:51)
[2018-07-15] MEDS: NIFEDIPINE CR 30 MG TAB PO SCH (08:15)
[2018-07-15] MEDS: DOXYCYCLINE HYCLATE TABLET 100 MG TAB PO SCH ×2 (08:15→16:09)
[2018-07-15] MEDS: DOCUSATE SODIUM 100 MG CAP PO SCH (08:15)
[2018-07-15] MEDS: CLOPIDOGREL BISULFATE 75 MG TAB PO SCH (08:15)
[2018-07-15] MEDS: ASPIRIN 81 MG CHEW TAB PO SCH (08:15)
--- NOTE | 2018-07-15 14:07 | Progress Note ---
DATE: July 15, 2018 PULMONARY MEDICINE PROGRESS NOTE SUBJECTIVE: Mr. Perla was seen and examined at bedside. He continues to have slow progress. The patient is able to walk with no additional assist. He is independent now. He is eating. He is having bowel movements. His incision is still clean and dry without drainage. REVIEW OF SYSTEMS: No headaches, no bleeding. OBJECTIVE VITALS: Afebrile. Vital signs noted per electronic record. GENERAL: In no acute distress, alert and calm. HEENT: Normocephalic, atraumatic. NECK: Supple. Throat is midline. LUNGS: Bilateral air entry, clear. CARDIOVASCULAR: S1 and S2. No murmurs, rubs, or gallops. ABDOMEN: Soft and nontender. EXTREMITIES: No clubbing, no cyanosis. There is no edema. INTEGUMENTARY: No rash. No purpura. with the right foot covered, limited view of the right foot. IMPRESSION AND PLAN 1. Postoperative state, status post femoral-popliteal bypass. 2. Peripheral vascular disease. 3. Ischemic right 5th toe, under evaluation. Continue current treatment. Continue smoking cessation. Preoperative evaluation, possible amputation of right 5th toe. Continue cardiac/peripheral vascular medication for the ischemia. We will follow up closely. Job#: [id number] JARED
[2018-07-15] MEDS: MUPIROCIN 2% OINT 22 GM TUBE TOP SCH (14:09)
[2018-07-15] MEDS ORDERED: DOCUSATE SODIUM 100 MG CAP PO PRN (14:45)
[2018-07-15] MEDS: HYDROCODONE/APAP 10MG-325MG TAB PO PRN ×2 (16:09→23:24)
--- NOTE | 2018-07-15 18:18 | Progress Note ---
DATE: July 15, 2018 SUBJECTIVE: Patient at bedside. Doing better. Decreased pain to the right lower extremity. OBJECTIVE VITAL SIGNS: Afebrile. Pulse rate 67, respiratory rate 18, blood pressure 130/68, and O2 saturation 96%. EXTREMITIES: Gangrenous changes noted to the 5th digit, right foot. Erythema surrounding the 5th metatarsophalangeal joints. Incision site of the right foot looking good. Flap is viable. LABORATORY DATA: White blood cell count of 10.3, hemoglobin 10.1. ASSESSMENT: Gangrene, capsulitis, tailor's bunion right foot with peripheral arterial disease. PLAN: We will continue let the foot demarcate. Patient be kept n.p.o. after midnight on Monday. Surgery will be performed on Monday. Proposed surgery will be discussed with the patient in full detail tomorrow depending on how the toe and foot is still looking. Job#: [id number] SIENA
--- NOTE | 2018-07-15 20:23 | Progress Note ---
DATE: July 15, 2018 CARDIOLOGY PROGRESS NOTE SUBJECTIVE: No complaints. PHYSICAL EXAMINATION VITAL SIGNS: Temperature 98.3, heart rate 67, respiratory rate 18, blood pressure 130/68, O2 sat 96%. GENERAL: No acute distress. Alert. NECK: No JVD. CHEST: Clear to auscultation. CARDIOVASCULAR: Regular rate and rhythm. Normal S1 and S2. No S3. No S4. ABDOMEN: Soft, nontender, nondistended. EXTREMITIES: No edema. Right foot wound covered with dressings. CARDIOVASCULAR MEDICATIONS: Reviewed. 1. Atorvastatin. 2. Aspirin. 3. Nicotine patch. 4. Metoprolol succinate. 5. Clopidogrel. STUDIES: Reviewed. Creatinine 0.8, hemoglobin 10.1, platelets 387. ASSESSMENT 1. Peripheral arterial disease. 2. Suspected chronic lung disease. 3. Hypertension. 4. Dyslipidemia. RECOMMENDATIONS: Add aspirin. Continue rest of cardiovascular medications. Job#: [id number] RTDelgado
[2018-07-15] MEDS: ATORVASTATIN 40 MG TAB PO SCH (20:50)
[2018-07-16] VITALS (7 sets, daily range): BP systolic 126–171; BP diastolic 69–91
[2018-07-16 08:04] LABS: BASOPHILS # (AUTO) 0.1 (0.0-0.1); EOSINOPHILS # (AUTO) 0.6 (0.0-0.4); HEMATOCRIT 31.8 % (38.2-49.6); HEMOGLOBIN 10.3 g/dL (14.0-18.0); LYMPHOCYTES # (AUTO) 1.5 (1.0-3.2); LYMPHOCYTES % 15.3 % (18.0-39.1); MEAN CORPUSCULAR HEMOGLOBIN 30.1 pg (28-32); MEAN CORPUSCULAR HGB CONC 32.4 g/dL (31-35); MONOCYTES # (AUTO) 0.9 (0.2-0.8); MONOCYTES % 9.1 % (4.4-11.3); NEUTROPHILS # (AUTO) 6.8 (2.1-6.9); NEUTROPHILS % 68.4 % (38.7-80.0); PLATELET COUNT 417 x10e3/uL (140-360); RED BLOOD COUNT 3.42 x10e6/uL (4.3-5.7); RED CELL DISTRIBUTION WIDTH 12.5 % (11.7-14.4)
[2018-07-16 08:27] LABS: ANION GAP 12.7 mmol/L (8-16); BLOOD UREA NITROGEN 21 mg/dL (7-26); CALCIUM 9.2 mg/dL (8.4-10.2); CARBON DIOXIDE 25 mmol/L (22-29); CHLORIDE 107 mmol/L (98-107); GLUCOSE 94 mg/dL (74-118); POTASSIUM 3.7 mmol/L (3.5-5.1); SODIUM 141 mmol/L (136-145)
[2018-07-16 08:50] LABS: BUN/CREATININE RATIO 25 (6-25); CREATININE, SERUM 0.85 mg/dL (0.72-1.25); EST GLOMERULAR FILTRATION RATE > 60 ML/MIN (60-)
[2018-07-16] MEDS ORDERED: ASPIRIN 81 MG CHEW TAB PO SCH (09:00)
[2018-07-16] MEDS: ASPIRIN 81 MG CHEW TAB PO SCH (09:00)
[2018-07-16] MEDS: CLOPIDOGREL BISULFATE 75 MG TAB PO SCH (09:00)
[2018-07-16] MEDS: NIFEDIPINE CR 30 MG TAB PO SCH (09:26)
[2018-07-16] MEDS: DOXYCYCLINE HYCLATE TABLET 100 MG TAB PO SCH ×2 (09:27→16:51)
[2018-07-16] MEDS: METOPROLOL SUCCINATE 50 MG TAB XL PO SCH ×2 (09:27→21:23)
[2018-07-16] MEDS: MUPIROCIN 2% OINT 22 GM TUBE TOP SCH (09:27)
[2018-07-16 09:42] LABS: INR 1.07; PROTHROMBIN TIME 14.9 seconds (11.9-14.5)
--- NOTE | 2018-07-16 10:29 | Progress Note ---
DATE: July 16, 2018 SUBJECTIVE: Patient at bedside. Decreased discomfort to the right lower extremity. Denies any history of fever, chills, nausea, or vomiting. OBJECTIVE VITAL SIGNS: Afebrile, pulse rate 63, respirations 18, blood pressure 148/70, O2 saturation 98%. EXTREMITIES: Has gangrenous changes to the distal aspect of the 5th digit, right foot with cellulitis proximal to that. Has erythema surrounding the 5th metatarsophalangeal joint. Pedal pulses are diminished. Flap overlying the 1st metatarsophalangeal joint is viable. LABS: Noted. Has a white blood cell count of 9.9, hemoglobin 10.3 with a platelet count of 417,000. Last INR was 1 on July 09, 2018. ASSESSMENT: Capsulitis/tailor's bunion, right foot with abscess and gangrene, 5th digit, right. PLAN: The proposed surgery plus risks and complications reviewed in great detail with the patient. The patient understands no warranties or guarantees can be given. Proposed surgery will be complete amputation or partial amputation of the toe depending on intraoperative findings, I and D of abscess, partial resection, 5th metatarsal head, right foot with rotational flap closure. Will be kept n.p.o. after midnight. INR was ordered to be done today. Will hold Plavix and aspirin for today. Job#: [id number] MT
--- NOTE | 2018-07-16 11:48 | Progress Note ---
DATE: July 16, 2018 CARDIOLOGY PROGRESS NOTE SUBJECTIVE: No new complaints. OBJECTIVE VITAL SIGNS: Temperature 97.7, heart rate 63, blood pressure 148/70, O2 sat 98% on room air. GENERAL: In no acute distress. Alert. NECK: No JVD. CHEST: Clear to auscultation. CARDIOVASCULAR: Regular rate and rhythm. Normal S1 and S2. No S3, no S4. No murmurs or rubs. ABDOMEN: Soft, nontender, nondistended. EXTREMITIES: No edema. Right foot fem-pop scars healing well. First toe stump healing well. Fifth toe tip black discoloration noted. Two-plus right dorsalis pedis and right posterior tibial pulses. CARDIOVASCULAR MEDICATIONS: Reviewed. 1. Nifedipine 60 mg daily. 2. Atorvastatin 80 mg nightly. 3. Clopidogrel 75 mg daily. 4. Aspirin 81 mg daily. 5. Metoprolol succinate 100 mg every 12 hours. STUDIES: Reviewed. White blood cells 9.9, hemoglobin 10.3, platelets 417. INR 1. Creatinine 0.8. ASSESSMENT 1. Peripheral arterial disease status post femoral popliteal bypass and first toe amputation, pending fifth toe amputation. 2. Hypertension. 3. Dyslipidemia. 4. Chronic lung disease suspected by chest x-ray in an active smoker. RECOMMENDATIONS: Continue current cardiovascular medications. Job#: [id number] EV
[2018-07-16] MEDS: HYDROCODONE/APAP 10MG-325MG TAB PO PRN (12:20)
--- NOTE | 2018-07-16 13:15 | Progress Note ---
DATE: July 16, 2018 PULMONARY MEDICINE PROGRESS NOTE SUBJECTIVE: Mr. Perla was seen and examined at bedside. He continues to have slow progress. His left 1st toe incision site is still healing well. It is clean and dry. His right 5th toe continues to demonstrate clear dry gangrene. He is eating well. He is having bowel movements. REVIEW OF SYSTEMS: No headaches. No double vision. OBJECTIVE VITALS: Afebrile. Vital signs noted per electronic record. GENERAL: In no acute distress. Alert and calm. HEENT: Normocephalic and atraumatic. NECK: Supple. Throat midline. LUNGS: Bilateral air entry. No rhonchi. No rales. CARDIOVASCULAR: S1 and S2. No murmurs, rubs or gallops. ABDOMEN: Soft and nontender. EXTREMITIES: No clubbing. No cyanosis. There is no edema. INTEGUMENT: No rash. No purpura. LABS: BUN 21, creatinine 0.9, potassium 3.7. White count 10, hematocrit 32, and platelets 417,000. IMPRESSION AND PLAN 1. Postoperative state: Status post femoral popliteal bypass. 2. Small vessel peripheral vascular disease with evolving gangrene, distal toe, 5th digit, right foot. 3. Hypertension. 4. Smoking. Continue blood pressure medicines. Continue cardiac/peripheral vascular disease meds, including antiplatelet agents. The patient expected for surgery tomorrow. Will continue to follow up closely. Job#: [id number] [place]
[2018-07-16] MEDS: ATORVASTATIN 40 MG TAB PO SCH (21:22)
[2018-07-16] MEDS: MORPHINE SULFATE INJ 4 MG/ML INJ IV PRN (22:00)
[2018-07-17] VITALS (9 sets, daily range): BP systolic 128–152; BP diastolic 61–80
[2018-07-17 05:13] LABS: BASOPHILS # (AUTO) 0.2 (0.0-0.1); BASOPHILS % 1.3 % (0.0-1.0); EOSINOPHILS # (AUTO) 0.7 (0.0-0.4); EOSINOPHILS % 5.9 % (0.0-6.0); HEMOGLOBIN 10.4 g/dL (14.0-18.0); MEAN CORPUSCULAR HEMOGLOBIN 30.1 pg (28-32); MEAN CORPUSCULAR HGB CONC 32.5 g/dL (31-35); MEAN CORPUSCULAR VOLUME 92.8 fL (81-99); MONOCYTES # (AUTO) 1.2 (0.2-0.8); MONOCYTES % 9.4 % (4.4-11.3); NEUTROPHILS # (AUTO) 8.3 (2.1-6.9); PLATELET COUNT 418 x10e3/uL (140-360); RED BLOOD COUNT 3.45 x10e6/uL (4.3-5.7); RED CELL DISTRIBUTION WIDTH 12.6 % (11.7-14.4)
[2018-07-17 05:33] LABS: BLOOD UREA NITROGEN 20 mg/dL (7-26); BUN/CREATININE RATIO 25 (6-25); CALCIUM 9.2 mg/dL (8.4-10.2); CARBON DIOXIDE 22 mmol/L (22-29); CHLORIDE 106 mmol/L (98-107); CREATININE, SERUM 0.81 mg/dL (0.72-1.25); EST GLOMERULAR FILTRATION RATE > 60 ML/MIN (60-); GLUCOSE 96 mg/dL (74-118); SODIUM 137 mmol/L (136-145)
[2018-07-17] MEDS ORDERED: BUPIVACAINE 0.25% 30ML SDV INJ ONE (07:31)
[2018-07-17] MEDS ORDERED: BETAMETHASONE DISODIUM PHOS 6 MG/ML VIAL ONE (07:31)
[2018-07-17] MEDS ORDERED: LIDOCAINE HCL 1% LOCAL INJ 20 ML VIAL ONE (07:32)
[2018-07-17] MEDS ORDERED: BACITRACIN 50,000 UNIT VIAL ONE (07:50)
[2018-07-17] MEDS ORDERED: MUPIROCIN 2% OINT 22 GM TUBE ONE (07:50)
--- NOTE | 2018-07-17 09:39 | Operative Report ---
DATE OF PROCEDURE: July 17, 2018 PREOPERATIVE DIAGNOSES 1. Abscess, right foot. 2. Gangrene, right foot. 3. Tailor's bunion, right foot. POSTOPERATIVE DIAGNOSES 1. Abscess, right foot. 2. Gangrene, right foot. 3. Tailor's bunion, right foot. OPERATIVE PROCEDURES 1. Incision and drainage of abscess down to bone. 2. Partial amputation of 5th digit, right foot. 3. Tailor's bunionectomy, right foot. 4. Rotational flap closure, right foot. ANESTHESIA: General. HEMOSTASIS: None. PROCEDURE IN DETAIL: Patient was taken into the operating room and placed on the operating room table in the supine position. Following induction of general anesthesia by the anesthesiologist, the right lower extremity was then prepped and draped in the usual aseptic manner. The following procedure was then performed: PROCEDURE #1: I and D of abscess, right foot. Attention was directed to the distal aspect of the right 5th toe where an incision was performed down to bone. Abscess and purulent drainage was encountered and cultured for aerobic and anaerobic growth. Necrotic tissue was then debrided down via sharp dissection down to bone. PROCEDURE #2: Was then performed. The toe was then disarticulated at the proximal interphalangeal joint and sent for pathological analysis. Partial amputation of the 5th toe was performed. Utilizing an oscillating saw, the head of the proximal phalanx was also excised to allow for a rotational flap closure with minimal skin tension. PROCEDURE #3: Tailor's bunionectomy, right foot. Attention was then directed overlying the 5th metatarsophalangeal joint where a 3 cm linear incision was performed. Incision was deepened down to the joint capsule. Longitudinal capsulotomy was then performed exposing the head of the 5th metatarsal, right foot. The exostosis was then visualized. Utilizing an oscillating saw, the exostosis was excised from the operation site in toto. All rough and bony edges were rasped smooth via the use of bone rasp. All areas were then copiously flushed with sterile antibiotic solution and suctioned. PROCEDURE #4: Rotational flap closure. Attention was then directed to the distal aspect of the 5th digit where more of the necrotic tissue had to be removed via sharp dissection. The incision was then lengthened plantar laterally and an incision was made dorsal medially to allow for a plantar flap for closure with minimal skin tension. The flap was then reapproximated. Utilizing 3-0 Vicryl and 4-0 nylon, the flap and incisions were closed after properly and copiously flushing the area with sterile antibiotic solution. Five mL of 0.5% plain Marcaine plus 5 mL of Xylocaine plain were then used to achieve local anesthesia to the above-mentioned surgical area. Sterile dressing was applied. Patient was then transferred from the OR to recovery with vital signs stable and neurovascular status intact. No intraoperative complications were encountered. Blood loss from the surgery was minimal. Patient will possibly go home tomorrow. Will continue IV antibiotics and do a CBC with diff in the a.m. If everything is okay, the patient will be discharged. Job#: [id number] DREA
--- NOTE | 2018-07-17 09:43 | Diagnostic Imaging Report ---
Exam: Right foot 2 views History: Amputation of digits Comparison: 07/11/2018 Findings: See impression Impression: Interval amputation of the middle and distal phalanges of the fifth ray with overlying soft tissue changes. Subcutaneous gas adjacent to the first metatarsal head is less conspicuous on the current study. Remaining skeletal structures are intact. Signed by: Dr. Hebert Nuñez M.D. on 07/17/2018 9:40 AM
[2018-07-17] MEDS: MORPHINE SULFATE INJ 4 MG/ML INJ IV PRN ×2 (10:29→15:35)
[2018-07-17] MEDS: NIFEDIPINE CR 30 MG TAB PO SCH (12:16)
[2018-07-17] MEDS: METOPROLOL SUCCINATE 50 MG TAB XL PO SCH ×2 (12:16→20:50)
[2018-07-17] MEDS: HYDROCODONE/APAP 10MG-325MG TAB PO PRN ×2 (12:16→17:57)
[2018-07-17] MEDS: CLOPIDOGREL BISULFATE 75 MG TAB PO SCH (12:16)
[2018-07-17] MEDS: ASPIRIN 81 MG CHEW TAB PO SCH (12:16)
[2018-07-17] MEDS: DOXYCYCLINE HYCLATE TABLET 100 MG TAB PO SCH ×2 (12:16→16:24)
--- NOTE | 2018-07-17 14:59 | Progress Note ---
DATE: July 17, 2018 PULMONARY MEDICINE PROGRESS NOTE SUBJECTIVE: Mr. Perla was seen and examined at bedside. He continues to have slow improvement. He did go for surgery today with stump amputation of that 5th left toe. Patient with some postoperative pain. Patient still maintaining the ability to eat and no emesis. He is having bowel movements every day. REVIEW OF SYSTEMS: No headaches, no bleeding. OBJECTIVE VITAL SIGNS: Afebrile. Vital signs noted per electronic record. GENERALLY: No acute distress, alert and calm. HEENT: Normocephalic, atraumatic. NECK: Supple. Throat midline. LUNGS: Bilateral air entry, clear. CARDIOVASCULAR: S1 and S2. No murmurs, rubs or gallops. ABDOMINAL: Soft, nontender. EXTREMITIES: No clubbing, no cyanosis. There is no edema. INTEGUMENT: No rash. No purpura. The right foot is covered with bandage. LABS: Potassium 4.0. White count 12, hematocrit 32. IMPRESSION AND PLAN 1. Postoperative state, status post femoral popliteal bypass to the right leg. 2. Postoperative state, status post right 1st toe and now 5th toe amputations. 3. Dry gangrene. 4. Peripheral vascular disease, resolving. 5. Smoking. 6. Hypertension. Continue current local wound care as per sprinkling system installer. Follow up closely. Patient will stay in the hospital today and will review postoperative recovery. He did have his first meal. Will follow up. Continue close followup. Continue smoking cessation. Continue cardiac and vascular medicines as ordered. Job#: [id number] EV
[2018-07-17] MEDS ORDERED: FENTANYL CITRATE/PF 100MCG/2 ML INJ ONE (19:05)
[2018-07-17] MEDS ORDERED: MIDAZOLAM HCL 2 MG/2 ML VIAL ONE (19:05)
[2018-07-17] MEDS ORDERED: SEVOFLURANE INHAL SOLN 250 ML PEN BTL ONE (19:09)
[2018-07-17] MEDS ORDERED: PROPOFOL IV EMULSION 10 MG/ML 20 ML VIAL ONE (19:09)
[2018-07-17] MEDS ORDERED: LIDOCAINE HCL 2% LOCAL INJ 5 ML SDV VIAL INJ ONE (19:09)
[2018-07-17] MEDS ORDERED: ONDANSETRON HCL INJ 2 MG/ML VIAL ONE (19:09)
[2018-07-17] MEDS: ATORVASTATIN 40 MG TAB PO SCH (20:49)
--- NOTE | 2018-07-17 21:14 | Progress Note ---
DATE: July 17, 2018 CARDIOLOGY PROGRESS NOTE SUBJECTIVE: No new complaints. PHYSICAL EXAMINATION: VITAL SIGNS: Temperature 99.5, heart rate 70, blood pressure 134/80, O2 sat 96%, respiratory rate 19, BMI 25.6. GENERAL: In no acute distress, alert. NECK: No JVD. CHEST: Clear to auscultation. CARDIOVASCULAR: Regular rate and rhythm. Normal S1 and S2. No S3, no S4. ABDOMEN: Soft, nontender. EXTREMITIES: No edema. Right foot wound covered with dressings. CARDIOVASCULAR MEDICATIONS: Reviewed. Aspirin, nifedipine, nicotine patch, atorvastatin, metoprolol succinate, clopidogrel, hydralazine. STUDIES: Reviewed. Creatinine 0.8. Hemoglobin 10.4, platelets 418,000, white blood cells 12.3. INR 1. Normal transaminases. ASSESSMENT: 1. Peripheral arterial disease, status post femoropopliteal bypass, now status post first and fifth right toe amputation. 2. Anemia. 3. Hypertension. 4. Dyslipidemia. 5. Suspected chronic lung disease. RECOMMENDATIONS: Continue current cardiovascular medications and pain control. Job#: [id number]
[2018-07-18] VITALS: BP 128/69
[2018-07-18 04:00] VITALS: BP 110/70
[2018-07-18] MEDS: MORPHINE SULFATE INJ 4 MG/ML INJ IV PRN ×2 (05:24→08:35)
[2018-07-18 05:34] LABS: BASOPHILS # (AUTO) 0.1 (0.0-0.1); BASOPHILS % 1.1 % (0.0-1.0); EOSINOPHILS # (AUTO) 0.6 (0.0-0.4); EOSINOPHILS % 5.1 % (0.0-6.0); HEMATOCRIT 32.4 % (38.2-49.6); HEMOGLOBIN 10.4 g/dL (14.0-18.0); LYMPHOCYTES # (AUTO) 1.8 (1.0-3.2); MEAN CORPUSCULAR HEMOGLOBIN 29.6 pg (28-32); MEAN CORPUSCULAR HGB CONC 32.1 g/dL (31-35); MEAN CORPUSCULAR VOLUME 92.3 fL (81-99); MONOCYTES # (AUTO) 1.1 (0.2-0.8); MONOCYTES % 9.2 % (4.4-11.3); NEUTROPHILS # (AUTO) 8.1 (2.1-6.9); PLATELET COUNT 431 x10e3/uL (140-360); RED BLOOD COUNT 3.51 x10e6/uL (4.3-5.7); RED CELL DISTRIBUTION WIDTH 12.8 % (11.7-14.4)
[2018-07-18 05:51] LABS: ANION GAP 12.3 mmol/L (8-16); BLOOD UREA NITROGEN 23 mg/dL (7-26); BUN/CREATININE RATIO 28 (6-25); CALCIUM 8.6 mg/dL (8.4-10.2); CARBON DIOXIDE 23 mmol/L (22-29); CHLORIDE 106 mmol/L (98-107); CREATININE, SERUM 0.83 mg/dL (0.72-1.25); EST GLOMERULAR FILTRATION RATE > 60 ML/MIN (60-); GLUCOSE 99 mg/dL (74-118); POTASSIUM 4.3 mmol/L (3.5-5.1); SODIUM 137 mmol/L (136-145)
[2018-07-18 07:25] VITALS: BP 122/59
[2018-07-18 07:49] VITALS: BP 122/59
[2018-07-18] MEDS: ASPIRIN 81 MG CHEW TAB PO SCH (08:36)
[2018-07-18] MEDS: DOXYCYCLINE HYCLATE TABLET 100 MG TAB PO SCH (08:36)
[2018-07-18] MEDS: NIFEDIPINE CR 30 MG TAB PO SCH (08:36)
[2018-07-18] MEDS: CLOPIDOGREL BISULFATE 75 MG TAB PO SCH (08:36)
[2018-07-18] MEDS: METOPROLOL SUCCINATE 50 MG TAB XL PO SCH (08:36)
--- NOTE | 2018-07-18 09:47 | Progress Note ---
DATE: July 18, 2018 SUBJECTIVE: Patient at bedside. Doing well. Denies any history of fever, chills, nausea, or vomiting. Minimal pain to the right foot. OBJECTIVE VITAL SIGNS: Afebrile. Vital signs stable. EXTREMITIES: CFT to all toes, digits 2, 3 and 4 are less than 4 seconds. Skin temperature warm to touch. LABS: Noted. White blood cell count dropping to 11.7. Hemoglobin 10.4. ASSESSMENT: Status post multiple surgeries with incision and drainage and flap closure to the right foot. PLAN: Okay to be discharged. Patient instructed to follow up on next Monday at the [place] office. Continue offloading with the surgical shoe as much as he can. Dressing will be changed in the office. Not to touch dressing. Job#: [id number] [place]
[2018-07-18 11:25] VITALS: BP 113/55
--- NOTE | 2018-07-18 11:26 | Progress Note ---
DATE: July 18, 2018 CARDIOLOGY PROGRESS NOTE SUBJECTIVE: No new complaints. PHYSICAL EXAMINATION VITAL SIGNS: Temperature 96.9, heart rate 60, blood pressure 122/59, respiratory rate 18, O2 sat 97%. GENERAL: No acute distress, alert. NECK: No JVD. CHEST: Clear to auscultation. CARDIOVASCULAR: Regular rate and rhythm. Normal S1 and S2. No S3, no S4. ABDOMEN: Soft, nontender. EXTREMITIES: No edema. Right foot wound covered with dressings. CARDIOVASCULAR MEDICATIONS: Reviewed. 1. Aspirin 81 mg daily. 2. Atorvastatin 80 mg nightly. 3. Nicotine patch 21 mg daily. 4. Metoprolol succinate 100 mg every 12 hours. 5. Clopidogrel 75 mg daily. 6. Hydralazine 25 mg every 4 hours. STUDIES: Reviewed. Creatinine 0.8. Hemoglobin 10.4. Potassium 4.3, bicarbonate 23, AST 49, ALT 58. ASSESSMENT 1. Peripheral arterial disease, status post right femoral-popliteal bypass with Dacron graft followed by 1st and 5th toe amputations, being followed by podiatry with improvement in his lower extremity healing. 2. Hypertension. 3. Dyslipidemia. 4. Suspected chronic lung disease in an active smoker. RECOMMENDATIONS 1. Outpatient followup for further cardiovascular evaluation advised within 2 to 4 weeks. Continue current cardiovascular medications. Continue close followup with podiatry. 2. Further outpatient evaluation for suspected lung disease by his supervisor electronics testing. Followup advised. Job#: [id number]
== END 2018-07-18 12:12 | disposition home or self-care (01) | DRG 271 ==
LOC: ER 11:54 → ERHOLD 16:14 → MED/SURG3 20:40 → ICU 06-30 16:56 → IMCU 07-06 22:53 → MED/SURG3 07-10 15:56
PROVIDERS: ADMIT Internal Medicine; ATTEND Internal Medicine
PROC: 04CK3ZZ Extirpation of Matter from Right Femoral Artery, Percutaneous Approach (ICD-10-PCS; 2018-06-30)
PROC: B41D1ZZ Fluoroscopy of Aorta and Bilateral Lower Extremity Arteries using Low Osmolar Contrast (ICD-10-PCS; 2018-06-30)
PROC: 04CM0ZZ Extirpation of Matter from Right Popliteal Artery, Open Approach (ICD-10-PCS; 2018-07-04)
PROC: 041K0JL Bypass Right Femoral Artery to Popliteal Artery with Synthetic Substitute, Open Approach (ICD-10-PCS; principal; 2018-07-04 14:00)
PROC: 0Y6P0Z0 Detachment at Right 1st Toe, Complete, Open Approach (ICD-10-PCS; 2018-07-11)
PROC: 0HXMXZZ Transfer Right Foot Skin, External Approach (ICD-10-PCS; 2018-07-11)
PROC: 0Y6X0Z1 Detachment at Right 5th Toe, High, Open Approach (ICD-10-PCS; 2018-07-17)
PROC: 0QBQ0ZZ Excision of Right Toe Phalanx, Open Approach (ICD-10-PCS; 2018-07-17)
PROC: 0HXMXZZ Transfer Right Foot Skin, External Approach (ICD-10-PCS; 2018-07-17)
DX: I70.261 Atherosclerosis of native arteries of extremities with gangrene, right leg (principal); L03.115 Cellulitis of right lower limb; I74.3 Embolism and thrombosis of arteries of the lower extremities; L02.611 Cutaneous abscess of right foot; F17.210 Nicotine dependence, cigarettes, uncomplicated; I16.0 Hypertensive urgency; I10 Essential (primary) hypertension; Z86.73 Personal history of transient ischemic attack (TIA), and cerebral infarction without residual deficits; M21.621 Bunionette of right foot; M77.51 Other enthesopathy of right foot and ankle; J44.9 Chronic obstructive pulmonary disease, unspecified; E78.5 Hyperlipidemia, unspecified; R41.0 Disorientation, unspecified; D64.9 Anemia, unspecified
CPT/HCPCS: 36247; 36415; 70496; 71046; 75625; 75710; 76001; 80048; 80053; 80061; 80202; 81001; 82550; 82553; 82948; 83036; 83605; 83735; 84100; 84443; 84484; 85007; 85025; 85027; 85610; 85651; 85730; 86850; 86900; 86920; 87040; 87071; 87075; 87086; 87205; 88304; 88305; 88311; 93005; 93306; 93922; 93925; 96360; 96361; 96366; 97139; 99284; C1766; C1768; C1769; J0360; J0461; J0720; J1100; J1644; J1650; J2001; J2175; J2250; J2270; J2405; J2543; J2720; J3370; J7030; J7040; J7050; Q9967

== ENCOUNTER 2020-05-04 12:38 | Emergency (ER) | payer MEDICARE, OTHER ==
[~2020-05-04] VITALS: Ht 177.8 cm; Wt 81.2 kg
[2020-05-04] MEDS ORDERED: XARELTO10 MG PO (13:17)
== END 2020-05-04 14:00 | disposition home or self-care (01) ==
LOC: ER 13:00
DX: I82.461 Acute embolism and thrombosis of right calf muscular vein (principal); I10 Essential (primary) hypertension; E78.5 Hyperlipidemia, unspecified; Z87.891 Personal history of nicotine dependence
CPT/HCPCS: 99283